=== PATIENT | female | born 1940 | race Caucasian/White ===

== ENCOUNTER 2016-11-24 10:05 | Outpatient (CLI) | payer MEDICARE, OTHER | END 2016-11-24 10:06 | disposition home or self-care (01) | DX: I10 Essential (primary) hypertension (principal); I25.10 Atherosclerotic heart disease of native coronary artery without angina pectoris; E78.2 Mixed hyperlipidemia; E74.39 Other disorders of intestinal carbohydrate absorption; R73.02 Impaired glucose tolerance (oral) ==

== ENCOUNTER 2017-08-25 09:38 | Outpatient (CLI) | payer MEDICARE, OTHER ==
[2017-08-25 12:57] LABS: BASOPHILS % (AUTO) 0.8 %; EOSINOPHILS # (AUTO) 0.2 10^3/uL (0.0-0.7); EOSINOPHILS % (AUTO) 4.5 %; HCT - HEMATOCRIT 35.5 % (37.0-47.0); HGB - HEMOGLOBIN 12.1 g/dL (12.0-16.0); LYMPHOCYTES # (AUTO) 1.9 10^3/uL (1.5-3.5); LYMPHOCYTES % (AUTO) 39.3 %; MEAN CORPUSCULAR HGB CONC 34.1 g/dL (32.0-36.0); MEAN CORPUSCULAR VOLUME 93.9 fL (81.0-99.0); MEAN PLATELET VOLUME 9.4 fL (7.9-10.8); MONOCYTES # (AUTO) 0.5 10^3/uL (0.0-1.0); MONOCYTES % (AUTO) 10.1 %; NEUTROPHILS # (AUTO) 2.2 10^3/uL (1.5-6.6); NEUTROPHILS % (AUTO) 45.3 %; RED BLOOD COUNT 3.78 10^6/uL (4.20-5.40); RED CELL DISTRIBUTION WIDTH 14.8 % (12.0-15.0); UNCORRECTED WHITE BLOOD COUNT 4.9 x10^3/uL; WHITE BLOOD COUNT 4.9 x10^3/uL (4.8-10.8)
[2017-08-25 13:22] LABS: CALCIUM 9.1 mg/dL (8.5-10.3); CREATININE 0.7 mg/dL (0.4-1.0); POTASSIUM 4.1 mmol/L (3.5-5.0)
== END 2017-08-25 09:39 | disposition home or self-care (01) ==
LOC: LAB.WCP 09:38
PROVIDERS: ATTEND Nurse Practitioner
DX: I35.0 Nonrheumatic aortic (valve) stenosis (principal); Z51.81 Encounter for therapeutic drug level monitoring; Z79.899 Other long term (current) drug therapy
CPT/HCPCS: 36415; 80048; 85025

== ENCOUNTER 2017-10-26 08:00 | Outpatient (CLI) | payer MEDICARE, OTHER | END 2017-10-26 08:01 | disposition home or self-care (01) | LOC: LAB.WCP 08:00 | PROVIDERS: ATTEND Family Medicine | DX: N39.0 Urinary tract infection, site not specified (principal) | CPT/HCPCS: 87086 ==

== ENCOUNTER 2017-11-18 13:53 | Outpatient (CLI) | payer MEDICARE, OTHER ==
--- NOTE | 2017-11-19 16:45 | Mammography Report ---
DATE OF SERVICE: 11/18/2017 DIGITAL SCREENING MAMMOGRAM: 11/18/2017 CLINICAL INDICATION: A 77-year-old with family history of breast cancer, history of benign biopsy, for screening. COMPARISON: 05/2016, 03/2014, 11/2012, 06/2011. TECHNIQUE: Routine CC and MLO projections were obtained of the breasts. FINDINGS: The breasts again demonstrate scattered fibroglandular densities bilaterally. Coarse and punctate, typically benign calcifications are present. No suspicious masses, clustered microcalcifications, or regions of architectural distortion are identified. IMPRESSION: BENIGN FINDINGS. RECOMMENDATION: ROUTINE ANNUAL SCREENING UNLESS OTHERWISE CLINICALLY INDICATED. BIRADS CATEGORY 2-BENIGN FINDINGS. STANDARD QUALIFYING STATEMENTS: 1. This examination was reviewed with the aid of Computer-Aided Detection (CAD). 2. A negative or benign imaging report should not delay biopsy if clinically suspicious findings are present. Consider surgical consultation if warranted. More than 5% of cancers are not identified by imaging. 3. Dense breasts may obscure an underlying neoplasm. TD: 11/19/2017 17:45
== END 2017-11-18 13:54 | disposition home or self-care (01) ==
LOC: DI 13:53
PROVIDERS: ATTEND Family Medicine
DX: Z12.31 Encounter for screening mammogram for malignant neoplasm of breast (principal); Z80.3 Family history of malignant neoplasm of breast
CPT/HCPCS: 77067

== ENCOUNTER 2018-05-30 14:20 | Outpatient (CLI) | payer MEDICARE, OTHER ==
--- NOTE | 2018-06-01 09:24 | DEXA Report ---
Procedure Date: 05/30/2018 Accession Number: [id number] / [id number] Procedure: DEX - Dexa Spine and/or Hip CPT Code: FULL RESULT: EXAM: Dexa Spine and/or Hip DATE: 05/30/2018 3:05 PM CLINICAL HISTORY: OSTEOPOROSIS NOS TECHNIQUE: Dual energy x-ray absorptiometry (DXA) was performed on a [employer] System. Regions measured are the AP Spine, femoral neck, and if needed forearm. COMPARISON: None. In accordance with the International Society for Clinical Densitometry (ISCD) guidelines, data from previous exams may be reanalyzed using current recommendations and techniques. This is done to allow a more accurate basis for comparison with the current study. FINDINGS: The data for the lumbar spine is as follows: BMD (g/cm/cm) T-SCORE Z-SCORE REGION L1 L2 0.288 -7.6 -7.0 L3 0.238 -8.0 -7.4 L4 0.218 -8.2 -7.5 TOTAL 0.247 -7.9 -7.3 NOTE: All evaluable vertebrae are used for classification The data for the hip is as follows: BMD (g/cm/cm) T-SCORE Z-SCORE REGION Neck 0.589 -3.2 -1.9 TOTAL 0.597 -3.3 -2.2 NOTE: The femoral neck or total proximal femur, whichever is lowest, is used for classification. DXA RESULTS SUMMARY: Spine SCAN DATE A[age] BMD CHANGE VS CHANGE VS PREVIOUS PREVIOUS % [birth year][age]30/2018 [age] 0.228 -0.774* -76.2* 08/14/2016 76.0 1.002 * Denotes significant change at the 95% confidence level. Denotes dissimilar scan types or analysis methods. DXA RESULTS SUMMARY: Hip SCAN DATE AGE BMD CHANGE VS CHANGE VS PREVIOUS PREVIOUS % [birth year]30/2018 77.8 0.597 0.019 3.3 08/14/2016 76.0 0.578 * Denotes significant change at the 95% confidence level. Denotes dissimilar scan types or analysis methods. IMPRESSION: THE WHO CLASSIFICATION BASED ON THE INTERNATIONAL REFERENCE STANDARD IS OSTEOPOROSIS. THE FRACTURE RISK IS HIGH. Please note that the interval change represents marked progression of osteoporosis. RECOMMENDATION: Patients with diagnosis of osteoporosis or osteopenia should have regular bone mineral density assessment. For those eligible for Medicare, routine testing is allowed once every 2 years. Testing frequency can be increased for patients who have rapidly progressing disease or for those who are receiving medical therapy to restore bone mass. COMMENT: World Health Organization (WHO) definitions for osteoporosis and osteopenia: NORMAL BMD: T-score at -1.0 or higher, fracture risk is low OSTEOPENIA BMD: T-score between -1.0 and -2.5, fracture risk is increased. OSTEOPOROSIS BMD: T-score at -2.5 or lower, fracture risk is high. National Osteoporosis Foundation recommends: 1. Obtain adequate dietary calcium (at least 1200 mg per day) and vitamin D (400-800 international units per day). 2. Participate, as appropriate, in regular weightbearing and muscle-strengthening exercise. 3. Avoid tobacco use and reduce alcohol and caffeine intake. 4. For more detailed information see the website at www.NOF.org.
== END 2018-05-30 14:21 | disposition home or self-care (01) ==
LOC: DI 14:20
PROVIDERS: ATTEND Family Medicine
DX: M81.0 Age-related osteoporosis without current pathological fracture (principal)
CPT/HCPCS: 77080

== ENCOUNTER 2018-07-20 13:52 | Outpatient (CLI) | payer MEDICARE, OTHER ==
[2018-07-20 19:30] LABS: CREATININE 0.5 mg/dL (0.4-1.0)
[2018-07-20 19:36] LABS: THYROID STIMULATING HORMONE 1.42 uIU/mL (0.34-5.60)
== END 2018-07-20 13:53 | disposition home or self-care (01) ==
LOC: LAB.WCP 13:52
PROVIDERS: ATTEND Internal Medicine Endocrinology, Diabetes & Metabolism
DX: M18.0 Bilateral primary osteoarthritis of first carpometacarpal joints (principal); E55.9 Vitamin D deficiency, unspecified; E03.9 Hypothyroidism, unspecified
CPT/HCPCS: 36415; 80048; 82652; 83970; 84443

== ENCOUNTER 2018-08-03 13:26 | Outpatient (CLI) | payer MEDICARE, OTHER | END 2018-08-03 13:27 | disposition home or self-care (01) | LOC: LAB.WCP 13:26 | PROVIDERS: ATTEND Internal Medicine Endocrinology, Diabetes & Metabolism | DX: E55.9 Vitamin D deficiency, unspecified (principal) | CPT/HCPCS: 36415; 82306; 83970 ==

== ENCOUNTER 2018-09-21 08:00 | Outpatient (CLI) | payer MEDICARE, OTHER ==
[2018-09-21 14:30] LABS: EOSINOPHILS # (AUTO) 0.2 10^3/uL (0.0-0.7); LYMPHOCYTES # (AUTO) 2.2 10^3/uL (1.5-3.5); LYMPHOCYTES % (AUTO) 52.2 %; MEAN CORPUSCULAR HEMOGLOBIN 33.7 pg (27.0-31.0); MEAN CORPUSCULAR HGB CONC 34.9 g/dL (32.0-36.0); MEAN CORPUSCULAR VOLUME 96.5 fL (81.0-99.0); MEAN PLATELET VOLUME 9.5 fL (7.9-10.8); MONOCYTES # (AUTO) 0.4 10^3/uL (0.0-1.0); MONOCYTES % (AUTO) 8.5 %; NEUTROPHILS # (AUTO) 1.4 10^3/uL (1.5-6.6); NEUTROPHILS % (AUTO) 33.3 %; PLT - PLATELET COUNT 221 10^3/uL (130-450); RED BLOOD COUNT 3.86 10^6/uL (4.20-5.40); RED CELL DISTRIBUTION WIDTH 13.5 % (12.0-15.0); WHITE BLOOD COUNT 4.2 x10^3/uL (4.8-10.8)
[2018-09-21 14:37] LABS: ALBUMIN 3.9 g/dL (3.2-5.5); ALBUMIN/GLOBULIN RATIO 1.3 (1.0-2.2); ALKALINE PHOSPHATASE 50 IU/L (42-121); ALT ALANINE AMINOTRANSFERASE 19 IU/L (10-60); AST ASPARTATE AMINOTRANSFERASE 31 IU/L (10-42); BILIRUBIN,TOTAL 1.1 mg/dL (0.2-1.0); BUN - BLOOD UREA NITROGEN 19 mg/dL (6-20); CALCIUM 9.2 mg/dL (8.5-10.3); CARBON DIOXIDE - CO2 30 mmol/L (21-32); CHLORIDE 98 mmol/L (101-111); CHOL/HDL RATIO 3.1 (<4.4); CHOLESTEROL 168 mg/dL; CREATININE 0.5 mg/dL (0.4-1.0); GFR - MDRD 119 (>89); GLUCOSE 97 mg/dL (70-100); HDL CHOLESTEROL 55 mg/dL; LDL CHOLESTEROL,CALCULATED 87 mg/dL; LDL/HDL RATIO 1.6 (<4.4); SODIUM 135 mmol/L (135-145); TOTAL PROTEIN 6.8 g/dL (6.7-8.2); VLDL CHOLESTEROL 26 mg/dL
== END 2018-09-21 23:59 ==
LOC: LAB.WCP 08:00
PROVIDERS: ATTEND Physician Assistant Medical
DX: E78.2 Mixed hyperlipidemia (principal); E03.9 Hypothyroidism, unspecified; I10 Essential (primary) hypertension; M81.0 Age-related osteoporosis without current pathological fracture; I25.10 Atherosclerotic heart disease of native coronary artery without angina pectoris
CPT/HCPCS: 36415; 80053; 80061; 83721; 84443; 85025

== ENCOUNTER 2018-12-30 08:00 | Outpatient (CLI) | payer MEDICARE, OTHER | END 2018-12-30 23:59 | disposition home or self-care (01) | LOC: LAB.WCP 08:00 | PROVIDERS: ATTEND Family Medicine | DX: Z51.81 Encounter for therapeutic drug level monitoring (principal); Z95.2 Presence of prosthetic heart valve; Z79.01 Long term (current) use of anticoagulants ==

== ENCOUNTER 2019-01-27 16:21 | Outpatient (CLI) | payer MEDICARE, OTHER ==
--- NOTE | 2019-01-30 16:52 | Mammography Report ---
Reason: ANNUAL SCREENING Procedure Date: 01/27/2019 Accession Number: [id number] / [id number] Procedure: [facility] - Screening Mammo Dig Bilat CPT Code: FULL RESULT: EXAM: Screening Mammo Dig Bilat DATE: 01/27/2019 4:47 PM CLINICAL HISTORY: Routine screening. Personal history of prior right breast surgery. Family history breast cancer in mother in her 70s. TECHNIQUE: (B) - Bilateral Bilateral CC and MLO views were obtained. COMPARISON: 11/18/2017 through 11/09/2012 FINDINGS: Bilateral breasts: No suspicious masses, clustered microcalcifications, or regions of architectural distortion are identified. No significant changes from the comparison mammograms. PARENCHYMAL PATTERN: (A) - The breasts demonstrate scattered fibroglandular densities bilaterally. IMPRESSION: Negative. BI-RADS Category 1. Recommend annual screening mammography. RECOMMENDATION: (ANNUAL) - Recommend routine annual screening mammography. BI-RADS CATEGORY: (1) - Negative STANDARD QUALIFYING STATEMENTS: 1. This examination was not reviewed with the aid of Computer-Aided Detection (CAD). 2. A negative or benign imaging report should not preclude biopsy if clinically suspicious findings are present. 3. Dense breasts may obscure an underlying neoplasm. 4. This examination was reviewed without the aid of 3D breast imaging (tomosynthesis).
== END 2019-01-27 16:22 | disposition home or self-care (01) ==
LOC: DI 16:21
DX: Z12.31 Encounter for screening mammogram for malignant neoplasm of breast (principal); Z80.3 Family history of malignant neoplasm of breast
CPT/HCPCS: 77067

== ENCOUNTER 2019-01-30 08:00 | Outpatient (CLI) | payer MEDICARE, OTHER | END 2019-01-30 23:59 | disposition home or self-care (01) | LOC: LAB.WCP 08:00 | PROVIDERS: ATTEND Family Medicine | DX: Z79.01 Long term (current) use of anticoagulants (principal); Z95.2 Presence of prosthetic heart valve | CPT/HCPCS: 81025 ==

== ENCOUNTER 2019-02-08 08:00 | Outpatient (CLI) | payer MEDICARE, OTHER | END 2019-02-08 23:59 | disposition home or self-care (01) | LOC: LAB.WCP 08:00 | PROVIDERS: ATTEND Physician Assistant | DX: Z51.81 Encounter for therapeutic drug level monitoring (principal); Z79.01 Long term (current) use of anticoagulants ==

== ENCOUNTER 2019-03-08 08:00 | Outpatient (CLI) | payer MEDICARE, OTHER | END 2019-03-08 23:59 | disposition home or self-care (01) | LOC: LAB.WCP 08:00 | PROVIDERS: ATTEND Physician Assistant | DX: Z79.01 Long term (current) use of anticoagulants (principal); Z95.2 Presence of prosthetic heart valve ==

== ENCOUNTER 2019-06-09 08:00 | Outpatient (CLI) | payer MEDICARE, OTHER | END 2019-06-09 23:59 | disposition home or self-care (01) | LOC: LAB.WCP 08:00 | PROVIDERS: ATTEND Family Medicine | DX: Z79.01 Long term (current) use of anticoagulants (principal); Z95.2 Presence of prosthetic heart valve ==

== ENCOUNTER 2019-06-12 08:53 | Outpatient (CLI) | payer MEDICARE, OTHER ==
[2019-06-12 12:42] LABS: ALBUMIN 3.6 g/dL (3.2-5.5); ALBUMIN/GLOBULIN RATIO 1.1 (1.0-2.2); ALKALINE PHOSPHATASE 34 IU/L (42-121); ALT ALANINE AMINOTRANSFERASE 18 IU/L (10-60); AST ASPARTATE AMINOTRANSFERASE 27 IU/L (10-42); BILIRUBIN,TOTAL 0.8 mg/dL (0.2-1.0); BUN - BLOOD UREA NITROGEN 16 mg/dL (6-20); CALCIUM 8.7 mg/dL (8.5-10.3); CARBON DIOXIDE - CO2 26 mmol/L (21-32); CHLORIDE 103 mmol/L (101-111); CHOL/HDL RATIO 2.9 (<4.4); CHOLESTEROL 163 mg/dL; CREATININE 0.6 mg/dL (0.4-1.0); GFR - MDRD 96 (>89); GLUCOSE 94 mg/dL (70-100); HDL CHOLESTEROL 57 mg/dL; LDL CHOLESTEROL,CALCULATED 87 mg/dL; LDL/HDL RATIO 1.5 (<4.4); SODIUM 139 mmol/L (135-145); TOTAL PROTEIN 6.8 g/dL (6.7-8.2); VLDL CHOLESTEROL 19 mg/dL
[2019-06-12 12:46] LABS: BASOPHILS % (AUTO) 0.7 %; EOSINOPHILS # (AUTO) 0.3 10^3/uL (0.0-0.7); EOSINOPHILS % (AUTO) 5.4 %; HGB - HEMOGLOBIN 12.5 g/dL (12.0-16.0); LYMPHOCYTES # (AUTO) 2.7 10^3/uL (1.5-3.5); LYMPHOCYTES % (AUTO) 48.8 %; MEAN CORPUSCULAR HEMOGLOBIN 32.6 pg (27.0-31.0); MEAN CORPUSCULAR HGB CONC 32.6 g/dL (32.0-36.0); MEAN PLATELET VOLUME 11.6 fL (7.9-10.8); MONOCYTES # (AUTO) 0.4 10^3/uL (0.0-1.0); MONOCYTES % (AUTO) 6.3 %; NEUTROPHILS # (AUTO) 2.2 10^3/uL (1.5-6.6); NEUTROPHILS % (AUTO) 38.4 %; PLT - PLATELET COUNT 205 10^3/uL (130-450); RED BLOOD COUNT 3.84 10^6/uL (4.20-5.40); RED CELL DISTRIBUTION WIDTH 13.7 % (12.0-15.0); WHITE BLOOD COUNT 5.6 x10^3/uL (4.8-10.8)
[2019-06-12 16:26] LABS: HB2 TOTAL 11.5 g/dL; HEMOGLOBIN A1C 0.4 g/dL; HEMOGLOBIN A1C % 5.3 % (4.6-6.2)
== END 2019-06-12 23:59 | disposition home or self-care (01) ==
LOC: LAB.WCP 08:53
PROVIDERS: ATTEND Family Medicine
DX: I10 Essential (primary) hypertension (principal); R73.09 Other abnormal glucose; E78.2 Mixed hyperlipidemia; E03.9 Hypothyroidism, unspecified
CPT/HCPCS: 36415; 80053; 80061; 83036; 83721; 84443; 85025

== ENCOUNTER 2019-07-05 08:00 | Outpatient (CLI) | payer MEDICARE, OTHER | END 2019-07-05 23:59 | disposition home or self-care (01) | LOC: LAB.WCP 08:00 | PROVIDERS: ATTEND Family Medicine | DX: Z95.2 Presence of prosthetic heart valve (principal); Z79.01 Long term (current) use of anticoagulants ==

== ENCOUNTER 2019-08-02 08:00 | Outpatient (CLI) | payer MEDICARE, OTHER | END 2019-08-02 23:59 | disposition home or self-care (01) | LOC: LAB.WCP 08:00 | PROVIDERS: ATTEND Family Medicine | DX: Z79.01 Long term (current) use of anticoagulants (principal); Z95.2 Presence of prosthetic heart valve ==

== ENCOUNTER 2019-08-30 08:00 | Outpatient (CLI) | payer MEDICARE, OTHER | END 2019-08-30 23:59 | disposition home or self-care (01) | LOC: LAB.WCP 08:00 | PROVIDERS: ATTEND Family Medicine | DX: Z95.2 Presence of prosthetic heart valve (principal); Z79.01 Long term (current) use of anticoagulants ==

== ENCOUNTER 2019-10-03 08:00 | Outpatient (CLI) | payer MEDICARE, OTHER | END 2019-10-03 23:59 | disposition home or self-care (01) | LOC: LAB.WCP 08:00 | PROVIDERS: ATTEND Family Medicine | DX: Z95.2 Presence of prosthetic heart valve (principal); Z79.01 Long term (current) use of anticoagulants ==

== ENCOUNTER 2019-11-08 08:00 | Outpatient (CLI) | payer MEDICARE, OTHER ==
[2019-11-08 18:13] LABS: BASOPHILS # (AUTO) 0.1 10^3/uL (0.0-0.1); EOSINOPHILS # (AUTO) 0.3 10^3/uL (0.0-0.7); EOSINOPHILS % (AUTO) 6.9 %; HGB - HEMOGLOBIN 13.5 g/dL (12.0-16.0); LYMPHOCYTES % (AUTO) 40.5 %; MEAN CORPUSCULAR HEMOGLOBIN 32.4 pg (27.0-31.0); MEAN CORPUSCULAR HGB CONC 32.8 g/dL (32.0-36.0); MEAN CORPUSCULAR VOLUME 98.6 fL (81.0-99.0); MEAN PLATELET VOLUME 10.8 fL (7.9-10.8); MONOCYTES # (AUTO) 0.6 10^3/uL (0.0-1.0); MONOCYTES % (AUTO) 11.1 %; NEUTROPHILS % (AUTO) 40.3 %; PLT - PLATELET COUNT 253 10^3/uL (130-450); RED BLOOD COUNT 4.17 10^6/uL (4.20-5.40); RED CELL DISTRIBUTION WIDTH 13.6 % (12.0-15.0)
== END 2019-11-08 23:59 | disposition home or self-care (01) ==
LOC: LAB.WCP 08:00
PROVIDERS: ATTEND Orthopaedic Surgery
DX: Z01.812 Encounter for preprocedural laboratory examination (principal)
CPT/HCPCS: 36415; 80051; 85025

== ENCOUNTER 2019-11-22 08:00 | Outpatient (CLI) | payer MEDICARE, OTHER | END 2019-11-22 23:59 | disposition home or self-care (01) | LOC: LAB.WCP 08:00 | PROVIDERS: ATTEND Family Medicine | DX: Z79.01 Long term (current) use of anticoagulants (principal); Z95.2 Presence of prosthetic heart valve ==

== ENCOUNTER 2019-12-01 08:00 | Outpatient (CLI) | payer MEDICARE, OTHER | END 2019-12-01 23:59 | disposition home or self-care (01) | LOC: LAB.WCP 08:00 | PROVIDERS: ATTEND Family Medicine | DX: Z95.2 Presence of prosthetic heart valve (principal); Z79.01 Long term (current) use of anticoagulants ==

== ENCOUNTER 2019-12-06 08:00 | Outpatient (CLI) | payer MEDICARE, OTHER | END 2019-12-06 23:59 | disposition home or self-care (01) | LOC: LAB.WCP 08:00 | PROVIDERS: ATTEND Family Medicine | DX: Z79.01 Long term (current) use of anticoagulants (principal); Z95.2 Presence of prosthetic heart valve ==

== ENCOUNTER 2020-02-14 01:18 | Emergency (ER) | payer MEDICARE, OTHER ==
[2020-02-14 02:20] LABS: BASOPHILS # (AUTO) 0.1 10^3/uL (0.0-0.1); BASOPHILS % (AUTO) 0.8 %; EOSINOPHILS # (AUTO) 0.1 10^3/uL (0.0-0.7); HGB - HEMOGLOBIN 11.4 g/dL (12.0-16.0); LYMPHOCYTES # (AUTO) 0.7 10^3/uL (1.5-3.5); LYMPHOCYTES % (AUTO) 11.2 %; MEAN CORPUSCULAR HEMOGLOBIN 31.8 pg (27.0-31.0); MEAN CORPUSCULAR HGB CONC 33.9 g/dL (32.0-36.0); MEAN CORPUSCULAR VOLUME 93.9 fL (81.0-99.0); MEAN PLATELET VOLUME 10.5 fL (7.9-10.8); MONOCYTES # (AUTO) 0.4 10^3/uL (0.0-1.0); MONOCYTES % (AUTO) 5.6 %; NEUTROPHILS # (AUTO) 5.3 10^3/uL (1.5-6.6); NEUTROPHILS % (AUTO) 79.8 %; PLT - PLATELET COUNT 235 10^3/uL (130-450); RED BLOOD COUNT 3.58 10^6/uL (4.20-5.40); RED CELL DISTRIBUTION WIDTH 15.4 % (12.0-15.0); WHITE BLOOD COUNT 6.6 x10^3/uL (4.8-10.8)
[2020-02-14 02:28] LABS: INR 2.3 (0.8-1.2); PT - PROTHROMBIN TIME 24.5 secs (9.9-12.6)
[2020-02-14 02:31] LABS: ALBUMIN/GLOBULIN RATIO 0.8 (1.0-2.2); BILIRUBIN,TOTAL 0.4 mg/dL (0.2-1.0); CALCIUM 7.9 mg/dL (8.5-10.3); CREATININE 0.6 mg/dL (0.4-1.0); TOTAL PROTEIN 6.9 g/dL (6.7-8.2)
--- NOTE | 2020-02-14 02:56 | XRAY Report ---
Reason: demenished lunch sounds, dry cough, tachypnea, SOA Procedure Date: 02/14/2020 Accession Number: [id number] / [id number] Procedure: XR - Chest 1 View X-Ray CPT Code: 53145 Final Report FULL RESULT: EXAM: CHEST RADIOGRAPHY EXAM DATE: 02/14/2020 02:42 AM. CLINICAL HISTORY: Demenished lunch sounds, dry cough, tachypnea, SOA. COMPARISON: None. TECHNIQUE: 1 view. FINDINGS: Lungs/Pleura: Mild bilateral interstitial opacities. No focal consolidation, effusion, or pneumothorax. Mediastinum: Postoperative changes. No cardiomegaly. Other: None. IMPRESSION: Mild bilateral interstitial prominence. Consider viral or atypical infection in the appropriate clinical scenario. RADIA
--- NOTE | 2020-02-14 03:19 | ED Physician Documentation ---
PD HPI FEVER - Stated complaint Stated Complaint: FEVER/COUGH - Chief complaint Chief Complaint: Fever - History obtained from History obtained from: Patient - History of Present Illness Timing - onset: Yesterday Timing details: Gradual onset Pain level now: 0 Associated symptoms: Sweats Recently seen: Admitted, Surgery - Additional information Additional information: Patient presents for fevers over the past 24 hours. Tmax at home tonight was 102. She has also had sweats. She has noted mild cough episodically for the past few weeks. patient underwent right hip replacement December 13. Approximately one week later, she underwent evacuation of a hematoma of the right thigh and was anemic and required transfusions. Approximately four weeks ago, she was taken back to the operating room for a washout of right hip infection and had a picc line placed LUE through which she continues to get antibiotic (home infusions). Review of Systems Constitutional: reports: Fever, Sweats. denies: Myalgias Cardiac: reports: Reviewed and negative Respiratory: reports: Cough. denies: Dyspnea GI: reports: Reviewed and negative : denies: Dysuria, Frequency Skin: reports: Reviewed and negative Neurologic: reports: Reviewed and negative PD PAST MEDICAL HISTORY - Past Medical History Past Medical History: Yes Cardiovascular: Hypertension, High cholesterol, Valve disorder Endocrine/Autoimmune: HyPOthyroidism GI: GERD - Past Surgical History Past Surgical History: Yes Ortho: Hip replacement Cardiovascular: Valve replacement - Present Medications Home Medications: Ambulatory Orders Medication Instructions Recorded Confirmed Amoxicillin 500 mg PO 02/16/20 Cyclobenzaprine HCl 10 mg PO 02/16/20 Ezetimibe 10 mg PO 02/16/20 Levofloxacin [Levaquin] 750 mg PO 02/16/20 Levothyroxine [Synthroid] 125 mcg PO QDAC 02/16/20 02/16/20 Lisinopril [Prinivil] 5 mg PO 02/16/20 Omeprazole 40 mg PO 02/16/20 Pramipexole Di-HCl [Pramipexole 0.25 mg PO 02/16/20 Dihydrochloride] Rosuvastatin Calcium [Crestor] 40 mg PO 02/16/20 Tolterodine Tartrate [Tolterodine 4 mg PO 02/16/20 Tartrate ER] Trospium Chloride [Trospium 60 mg PO 02/16/20 Chloride ER] Warfarin [Coumadin] 5 mg PO 1400 02/16/20 02/16/20 carvediloL [Carvedilol] 25 mg PO 02/16/20 - Allergies Allergies/Adverse Reactions: Allergies Allergy/AdvReac Type Severity Reaction Status Date / Time hydrocodone AdvReac Unknown Verified 02/16/20 21:19 latex AdvReac Unknown Verified 02/16/20 21:19 oxycodone AdvReac Unknown Verified 02/16/20 21:19 PD ED PE NORMAL - Vitals Vital signs reviewed: Yes - General General: Alert and oriented X 3, No acute distress, Well developed/nourished - HEENT HEENT: Moist mucous membranes - Neck Neck: Supple, no meningeal sign - Cardiac Cardiac: RRR, No murmur - Respiratory Respiratory: No respiratory distress, Clear bilaterally - Abdomen Abdomen: Soft, Non tender - Derm Derm: Normal color, Warm and dry - Extremities Extremities: Other (right hip surgical site is c/d/I with sutures in place. no crepitus, erythema, or discharge) Results - Vitals Vitals: Oxygen O2 Source Room air - Labs Labs: Microbiology 02/14/20 02:00 Blood Culture - Preliminary Blood NO GROWTH AFTER 2 DAYS Laboratory Tests 02/14/20 02/14/20 02/14/20 01:45 01:45 02:00 WBC 6.6 RBC 3.58 L Hgb 11.4 L Hct 33.6 L MCV 93.9 MCH 31.8 H MCHC 33.9 RDW 15.4 H Plt Count 235 MPV 10.5 Neut # (Auto) 5.3 Lymph # (Auto) 0.[address] [facility] # (Auto) 0.4 Eos # (Auto) 0.1 Baso # (Auto) 0.1 Absolute Nucleated RBC 0.00 Nucleated RBC % 0.0 PT INR APTT Sodium Potassium Chloride Carbon Dioxide Anion Gap BUN Creatinine Estimated GFR (MDRD) Glucose Lactic Acid Calcium Total Bilirubin AST ALT Alkaline Phosphatase Total Protein Albumin Globulin Albumin/Globulin Ratio Lipase Coronavirus (PCR) NEGATIVE Influenza A (Rapid) Negative Influenza B (Rapid) Negative 02/14/20 02/14/20 02/14/20 02:00 02:00 02:00 WBC RBC Hgb Hct MCV MCH MCHC RDW Plt Count MPV Neut # (Auto) Lymph # (Auto) [facility] # (Auto) Eos # (Auto) Baso # (Auto) Absolute Nucleated RBC Nucleated RBC % PT 24.5 H INR 2.3 H APTT 31.0 Sodium 131 L Potassium 3.0 L Chloride 97 L Carbon Dioxide 26 Anion Gap 8.0 BUN 12 Creatinine 0.6 Estimated GFR (MDRD) 96 Glucose 141 H Lactic Acid 1.5 Calcium 7.9 L Total Bilirubin 0.4 AST 66 H ALT 46 Alkaline Phosphatase 68 Total Protein 6.9 Albumin 3.0 L Globulin 3.9 Albumin/Globulin Ratio 0.8 L Lipase 31 Coronavirus (PCR) Influenza A (Rapid) Influenza B (Rapid) - Rads (name of study) chest xray Radiology: Prelim report reviewed, See rad report PD MEDICAL DECISION MAKING - ED course Complexity details: reviewed results, re-evaluated patient, considered differential, d/w patient Departure - Departure Disposition: 01 Home, Self Care Clinical Impression: Fever Qualifiers: Fever type: unspecified Qualified Code(s): R50.9 - Fever, unspecified Condition: Good Instructions: ED Fever Unconf Cause, ED Fever Control Follow-Up: Fermin Martell MD [Primary Care Provider] - Discharge Date/Time: 02/14/20 04:53
[2020-02-14 04:53] VITALS: BP 114/66
== END 2020-02-14 04:53 | disposition home or self-care (01) ==
LOC: ED 01:18
DX: R50.9 Fever, unspecified (principal); R61 Generalized hyperhidrosis; R05 Cough; I10 Essential (primary) hypertension; Z96.641 Presence of right artificial hip joint; Z79.01 Long term (current) use of anticoagulants; Z95.2 Presence of prosthetic heart valve
CPT/HCPCS: 36415; 71045; 80053; 83605; 83690; 85025; 85610; 85730; 87040; 87275; 87276; 99284; U0002; 81599

== ENCOUNTER 2020-02-16 20:19 | Outpatient (CLI) | payer MEDICARE, OTHER | END 2020-02-16 20:20 | disposition critical access hospital (66) | LOC: EMS 20:19 | PROVIDERS: ATTEND Surgery | DX: R06.02 Shortness of breath (principal); R53.83 Other fatigue; R00.0 Tachycardia, unspecified | CPT/HCPCS: A0425; A0427 ==

== ENCOUNTER 2020-02-16 21:08 | Emergency (ER) | payer MEDICARE, OTHER ==
[2020-02-16] MEDS ORDERED: SODIUM CHLORIDE 0.9% 250 ML IV STA (21:15)
[2020-02-16] MEDS ORDERED: METOPROLOL 5 MG/5 ML VIAL IVP STA (21:20)
[2020-02-16 21:26] LABS: BASOPHILS % (AUTO) 0.2 %; EOSINOPHILS # (AUTO) 0.2 10^3/uL (0.0-0.7); EOSINOPHILS % (AUTO) 1.3 %; HGB - HEMOGLOBIN 12.3 g/dL (12.0-16.0); LYMPHOCYTES # (AUTO) 0.8 10^3/uL (1.5-3.5); LYMPHOCYTES % (AUTO) 5.7 %; MEAN CORPUSCULAR HEMOGLOBIN 31.6 pg (27.0-31.0); MEAN CORPUSCULAR HGB CONC 34.6 g/dL (32.0-36.0); MEAN CORPUSCULAR VOLUME 91.5 fL (81.0-99.0); MEAN PLATELET VOLUME 10.7 fL (7.9-10.8); MONOCYTES # (AUTO) 0.2 10^3/uL (0.0-1.0); MONOCYTES % (AUTO) 1.6 %; NEUTROPHILS # (AUTO) 11.8 10^3/uL (1.5-6.6); NEUTROPHILS % (AUTO) 90.6 %; PLT - PLATELET COUNT 267 10^3/uL (130-450); RED BLOOD COUNT 3.89 10^6/uL (4.20-5.40); RED CELL DISTRIBUTION WIDTH 15.5 % (12.0-15.0); WHITE BLOOD COUNT 13.1 x10^3/uL (4.8-10.8)
[2020-02-16 21:31] LABS: PT - PROTHROMBIN TIME 61.1 secs (9.9-12.6)
[2020-02-16 21:40] LABS: ALBUMIN 2.8 g/dL (3.2-5.5); ALBUMIN/GLOBULIN RATIO 0.6 (1.0-2.2); BILIRUBIN,TOTAL 0.8 mg/dL (0.2-1.0); CALCIUM 7.9 mg/dL (8.5-10.3); CREATININE 0.7 mg/dL (0.4-1.0); INR 5.9 (0.8-1.2); TOTAL PROTEIN 7.3 g/dL (6.7-8.2)
[2020-02-16] MEDS ORDERED: FUROSEMIDE 40 MG/4 ML VIAL IVP STA (21:48)
[2020-02-16 21:49] LABS: DIFFERENTIAL COMMENT MANUAL=AUTO DIFF; PLATELET ESTIMATE, MANUAL NORMAL (130-450,000) (NORMAL); PLATELET MORPHOLOGY NORMAL APPEARANCE (NORMAL); RBC MORPHOLOGY (MULTIPLE) NORMAL APPEARANCE (NORMAL)
[2020-02-16] MEDS ORDERED: POTASSIUM CHLORIDE 20 MEQ TABLET PO STA (21:56)
[2020-02-16] MEDS ORDERED: POTASSIUM CHLOR 10 MEQ/100 ML 10 MEQ/100 ML BAG IV ONE (21:56)
--- NOTE | 2020-02-16 21:57 | ED Physician Documentation ---
History of Present Illness - Stated complaint Stated Complaint: SOA,AFIB, PNA, CHEST DISCOMFORT - Chief complaint Chief Complaint: Cardiac - Additonal information Additional information: This is an 79-year-old female with a history of atrial flutter/fibrillation on warfarin, hypertension, aortic valve replacement (at [facility]), and R hip surgery on 12/13/[address] [facility], heart failure with last EF several years ago 55% according to patient, who presents with shortness of breath. Patient states that she has been short of breath over the last week, and she presented to the emergency department 2 days ago, and had negative influenza and coronavirus testing, her chest x-ray showed possible early infiltrates, and she reports she was told she may have an early pneumonia. She was started on levofloxacin by her primary care provider, she has been taking this for the last 3 days without improvement. She has had worsening shortness of breath since that time, she states is worse when she lays down, she is also had a nonproductive cough. She denies any leg swelling. She denies chest pain. She denies abdominal pain or vomiting. Her breathing got worse tonight so she called EMS, she was found to be in atrial fibrillation with RVR, she was not given any medications in route. She denies fever. Review of Systems Constitutional: denies: Fever Nose: denies: Rhinorrhea / runny nose Cardiac: reports: Palpitations. denies: Chest pain / pressure Respiratory: reports: Dyspnea, Cough GI: denies: Abdominal Pain, Vomiting : reports: Other (+ for chronic incontinence). denies: Dysuria Musculoskeletal: denies: Neck pain Neurologic: denies: Syncope Immunocompromised: denies: Immunocompromised PD PAST MEDICAL HISTORY - Past Medical History Past Medical History: Yes Cardiovascular: Atrial flutter Endocrine/Autoimmune: HyPOthyroidism - Past Surgical History Past Surgical History: Yes Ortho: Hip replacement Cardiovascular: Valve replacement - Present Medications Home Medications: Ambulatory Orders Medication Instructions Recorded Confirmed Amoxicillin 500 mg PO 02/16/20 Cyclobenzaprine HCl 10 mg PO 02/16/20 Ezetimibe 10 mg PO 02/16/20 Levofloxacin [Levaquin] 750 mg PO 02/16/20 Levothyroxine [Synthroid] 125 mcg PO QDAC 02/16/20 02/16/20 Lisinopril [Prinivil] 5 mg PO 02/16/20 Omeprazole 40 mg PO 02/16/20 Pramipexole Di-HCl [Pramipexole 0.25 mg PO 02/16/20 Dihydrochloride] Rosuvastatin Calcium [Crestor] 40 mg PO 02/16/20 Tolterodine Tartrate [Tolterodine 4 mg PO 02/16/20 Tartrate ER] Trospium Chloride [Trospium 60 mg PO 02/16/20 Chloride ER] Warfarin [Coumadin] 5 mg PO 1400 02/16/20 02/16/20 carvediloL [Carvedilol] 25 mg PO 02/16/20 - Allergies Allergies/Adverse Reactions: Allergies Allergy/AdvReac Type Severity Reaction Status Date / Time hydrocodone AdvReac Unknown Verified 02/16/20 21:19 latex AdvReac Unknown Verified 02/16/20 21:19 oxycodone AdvReac Unknown Verified 02/16/20 21:19 - Social History Does the pt smoke?: No Smoking Status: Never smoker Does the pt drink ETOH?: No Does the pt have substance abuse?: No - Immunizations Immunizations are current?: Yes - POLST Patient has POLST: No PD ED PE NORMAL - Vitals Vital signs reviewed: Yes - General General: Alert and oriented X 3, Other (Respiratory distress) - HEENT HEENT: PERRL - Neck Neck: Supple, no meningeal sign - Cardiac Cardiac: Other (Tachycardic, irregularly irregular rhythm) - Respiratory Respiratory: Other (Slight expiratory wheezes bilaterally, bibasilar crackles.) - Abdomen Abdomen: Soft, Non tender, Non distended - Derm Derm: Warm and dry - Extremities Extremities: No deformity, Other (Well approximated incision over the right hip, with sutures in place, incision appears clean dry and intact without erythema or fluctuance, is not tender to palpation.) - Neuro Neuro: Alert and oriented X 3 - Psych Psych: Normal mood, Normal affect Results - Vitals Vitals: Vital Signs - 24 hr 02/16/20 02/16/20 02/16/20 21:19 21:25 21:30 Temperature 36.5 C Heart Rate 166 H 170 H 152 H Respiratory 20 22 40 H Rate Blood Pressure 97/65 105/82 H 118/80 O2 Saturation 94 99 95 02/16/20 02/16/20 02/16/20 21:37 22:20 22:30 Temperature Heart Rate 170 H 151 H 159 H Respiratory 28 H 40 H 38 H Rate Blood Pressure 107/94 H 119/74 101/81 H O2 Saturation 95 96 96 02/16/20 02/17/20 02/17/20 23:00 00:00 00:59 Temperature Heart Rate 160 H 170 H 157 H Respiratory 26 H 30 H 24 Rate Blood Pressure 101/75 102/68 107/82 H O2 Saturation 97 97 95 02/17/20 02/17/20 02/17/20 01:04 01:32 02:04 Temperature Heart Rate 143 H 156 H 156 H Respiratory 22 24 26 H Rate Blood Pressure 95/62 90/60 84/61 L O2 Saturation 95 94 95 02/17/20 02/17/20 02/17/20 02:12 02:20 02:23 Temperature Heart Rate 158 H 155 H 114 H Respiratory 30 H 30 H 28 H Rate Blood Pressure 91/70 79/57 L 113/74 O2 Saturation 95 95 90 L 02/17/20 02/17/20 02/17/20 02:28 02:40 03:01 Temperature Heart Rate 117 H 115 H 128 H Respiratory 30 H 28 H 28 H Rate Blood Pressure 110/95 H 115/65 108/81 H O2 Saturation 94 95 98 02/17/20 03:15 Temperature Heart Rate 104 H Respiratory 24 Rate Blood Pressure 113/72 O2 Saturation 98 Oxygen O2 Source Non-rebreather mask - EKG (time done) 21:12 Other comments: Other comments (Rate 176, rhythm atrial fibrillation with RVR, with apparent left bundle branch block, no STEMI by sgarbossa criteria) 2:34 Other comments: Other comments (Rate 115, rhythm sinus tachycardia with left bundle branch block, no STEMI by sgarbossa criteria) 1:42 Other comments: Other comments (Time 1: 42, rate 163, rhythm wide-complex tachycardia, favored to be atrial fibrillation with LBBB due to irregularity seen on monitor,) - Labs Labs: Laboratory Tests 02/16/20 02/16/20 02/16/20 21:15 21:15 21:15 WBC 13.1 H RBC 3.89 L Hgb 12.3 Hct 35.6 L MCV 91.5 MCH 31.6 H MCHC 34.6 RDW 15.5 H Plt Count 267 MPV 10.7 Neut # (Auto) 11.8 H Lymph # (Auto) 0.8 L [place] # (Auto) 0.2 Eos # (Auto) 0.2 Baso # (Auto) 0.0 Absolute Nucleated RBC 0.00 Band Neuts % (Manual) Not Reportable Abnorm Lymph % (Manual) Not Reportable Nucleated RBC % 0.0 Neutrophils # (Manual) Not Reportable Lymphocytes # (Manual) Not Reportable Monocytes # (Manual) Not Reportable Eosinophils # (Manual) Not Reportable Basophils # (Manual) Not Reportable Differential Comment MANUAL=AUTO DIFF Platelet Estimate NORMAL (130-450,000) Platelet Morphology NORMAL APPEARANCE RBC Morph Micro Appear NORMAL APPEARANCE PT 61.1 H INR 5.9 H* Sodium 124 L Potassium 3.0 L Chloride 88 L Carbon Dioxide 25 Anion Gap 11.0 BUN 19 Creatinine 0.7 Estimated GFR (MDRD) 81 L Glucose 98 Calcium 7.9 L Total Bilirubin 0.8 AST 54 H ALT 49 Alkaline Phosphatase 90 Troponin I High Sens B-Natriuretic Peptide Total Protein 7.3 Albumin 2.8 L Globulin 4.5 H Albumin/Globulin Ratio 0.6 L Lipase 145 H TSH Urine Color Urine Clarity Urine pH Ur Specific [place] Urine Protein Urine Glucose (UA) Urine Ketones Urine Occult Blood Urine Nitrite Urine Bilirubin Urine Urobilinogen Ur Leukocyte Esterase Urine RBC Urine WBC Ur Squamous Epith Cells Urine Bacteria Urine Casts Urine Culture Comments 02/16/20 02/16/20 02/16/20 21:15 21:15 21:15 WBC RBC Hgb Hct MCV MCH MCHC RDW Plt Count MPV Neut # (Auto) Lymph # (Auto) [place] # (Auto) Eos # (Auto) Baso # (Auto) Absolute Nucleated RBC Band Neuts % (Manual) Abnorm Lymph % (Manual) Nucleated RBC % Neutrophils # (Manual) Lymphocytes # (Manual) Monocytes # (Manual) Eosinophils # (Manual) Basophils # (Manual) Differential Comment Platelet Estimate Platelet Morphology RBC Morph Micro Appear PT INR Sodium Potassium Chloride Carbon Dioxide Anion Gap BUN Creatinine Estimated GFR (MDRD) Glucose Calcium Total Bilirubin AST ALT Alkaline Phosphatase Troponin I High Sens 208.0 H* B-Natriuretic Peptide 1018 H Total Protein Albumin Globulin Albumin/Globulin Ratio Lipase TSH 4.10 Urine Color Urine Clarity Urine pH Ur Specific [place] Urine Protein Urine Glucose (UA) Urine Ketones Urine Occult Blood Urine Nitrite Urine Bilirubin Urine Urobilinogen Ur Leukocyte Esterase Urine RBC Urine WBC Ur Squamous Epith Cells Urine Bacteria Urine Casts Urine Culture Comments 02/17/20 01:30 WBC RBC Hgb Hct MCV MCH MCHC RDW Plt Count MPV Neut # (Auto) Lymph # (Auto) [place] # (Auto) Eos # (Auto) Baso # (Auto) Absolute Nucleated RBC Band Neuts % (Manual) Abnorm Lymph % (Manual) Nucleated RBC % Neutrophils # (Manual) Lymphocytes # (Manual) Monocytes # (Manual) Eosinophils # (Manual) Basophils # (Manual) Differential Comment Platelet Estimate Platelet Morphology RBC Morph Micro Appear PT INR Sodium Potassium Chloride Carbon Dioxide Anion Gap BUN Creatinine Estimated GFR (MDRD) Glucose Calcium Total Bilirubin AST ALT Alkaline Phosphatase Troponin I High Sens B-Natriuretic Peptide Total Protein Albumin Globulin Albumin/Globulin Ratio Lipase TSH Urine Color YELLOW Urine Clarity CLEAR Urine pH 6.0 Ur Specific [place] 1.015 Urine Protein NEGATIVE Urine Glucose (UA) NEGATIVE Urine Ketones NEGATIVE Urine Occult Blood TRACE-LYSE Urine Nitrite NEGATIVE Urine Bilirubin NEGATIVE Urine Urobilinogen 0.2 (NORMAL) Ur Leukocyte Esterase NEGATIVE Urine RBC 0-5 Urine WBC 0-3 Ur Squamous Epith Cells NONE SEEN Urine Bacteria Rare Urine Casts 3-5 Hyaline Casts Urine Culture Comments NOT INDICATED Procedures - Procedural sedation Sedation prep: Informed consent, Time out completed, PE performed, AHA 3 - severe disease, RT present Sedation medications: ketamine Patient status during sedation: Unresponsive Sedation recovery: Recovered uneventfully Time in sedation (Minutes): 12 - Cardioversion Attempt 1 Time of attempt: 02:20 Indication: Tachyarrhythmia, Hypotension Risks, benefits, alternatives explained to: Pt Prep: IV, security monitor, Pulse ox, Airway equip Meds: Ketamine CS via: Pads Sync: Biphasic, 150j Post cardioversion rhythm: NSR Performed by: ED MD MEDICAL DECISION MAKING - ED course Complexity details: considered differential (Dysrhythmia, ACS, pneumothorax, pneumonia, coronavirus, heart failure, pulmonary embolism) ED course: On arrival patient is tachycardic, uncomfortable appearing, tachypneic, and short of breath despite being on nasal cannula. EKG shows atrial fibrillation with RVR. She was given 5 mg of metoprolol, and a 250 cc bolus as her blood pressure was low normal. This briefly improved her heart rate, but she continued to feel short of breath, and chest x-ray showed pulmonary edema consistent with heart failure. IV fluids were stopped, and patient was given Lasix instead. Labs show mild leukocytosis which is nonspecific, her INR is supratherapeutic at 5.9, making pulmonary embolism unlikely, and her labs are consistent with volume overload with hyponatremia hypokalemia, hypochloremia. She has mild AST elevation which may be due to hepatic congestion, she has a elevated troponin at 208, Which is indeterminate given her heart failure and RVR, and will be trended. ACS is less likely, given that she has no chest pain. BNP is elevated, UA is negative. She had a negative coronavirus test last 2 days and her symptoms are consistent with heart failure, she is afebrile, and I highly doubt coronavirus at this time, given her respiratory distress she was put on BiPAP and then transition to high flow nasal cannula due to its decreased risk of aerosolization if patients are COVID-19 positive. Her blood pressures down trended to the 90s systolics, and her heart rate remained highly elevated in A. fib with RVR. Given her heart failure beta- blockers and calcium channel blockers are contraindicated, I spoke with Dr. Blackwell of cardiology at [facility], who agreed the plan for amiodarone. Patient was given a loading bolus and was started on a 1/min drip of amiodarone, she had mild improvement of her heart rate from 160 to the 140s to 150s, however her blood pressure was stable to downtrending. She continued to downtrend her systolics to the 80s and then the 70s, at this point repeat EKG showed continued atrial fibrillation with RVR, She appears to becoming more unstable so after consenting the patient we have performed a procedural sedation with ketamine and cardioverted her with 150 J successfully. She afterwards had immediate improvement of her blood pressure and her heart rate improved to the 110s. She recovered from the ketamine uneventfully. She remained on high flow nasal cannula, but we were unable to transfer her on high flow nasal cannula, so she was transitioned to a nonrebreather and did well with this. She was hemodynamically stable at the time of transfer, at the time of transfer she was feeling much improved, and her work of breathing was improved, and she remains in sinus rhythm. She was transferred to [facility] for further treatment and evaluation. Departure - Departure Disposition: 66 [facility] DC/Xfer Clinical Impression: Atrial fibrillation with RVR, Elevated troponin Heart failure Qualifiers: Heart failure type: unspecified Heart failure chronicity: acute on chronic Qualified Code(s): I50.9 - Heart failure, unspecified Respiratory failure Qualifiers: Chronicity: acute Respiratory failure complication: hypoxia Qualified Code(s): J96.01 - Acute respiratory failure with hypoxia Condition: Stable Discharge Date/Time: 02/17/20 03:30
--- NOTE | 2020-02-16 22:02 | XRAY Report ---
Reason: Shortness of breath Procedure Date: 02/16/2020 Accession Number: [id number] / [id number] Procedure: XR - Chest 1 View X-Ray CPT Code: 29056 Final Report FULL RESULT: EXAM: CHEST RADIOGRAPHY EXAM DATE: 02/16/2020 09:27 PM. CLINICAL HISTORY: Shortness of breath. COMPARISON: CHEST 1 VIEW 02/14/2020 2:20 AM. TECHNIQUE: 1 view. FINDINGS: Lungs/Pleura: Worsening interstitial opacities compared to the prior exam, with some blunting of the costophrenic angles likely related at least small pleural effusions. No pneumothoraces. Mediastinum: No change compared to 02/14/2020. Postsurgical changes. Left arm PICC/midline, with tip in the axillary vein. Other: None. IMPRESSION: Worsening interstitial opacities and probable effusions suggest some developing pulmonary edema. RADIA
[2020-02-16] MEDS ORDERED: MIDAZOLAM 2 MG/2 ML VIAL IVP STA (22:06)
[2020-02-17] MEDS ORDERED: AMIODARONE 150 MG/100 ML 100 ML IV ONE (00:32)
[2020-02-17] MEDS ORDERED: AMIODARONE 360 MG/200 ML 200 ML IV ONE (00:32)
[2020-02-17] MEDS ORDERED: cefTRIAXone 1 GM VIAL IVP STA (00:33)
[2020-02-17 01:36] LABS: BILIRUBIN,URINE NEGATIVE (NEGATIVE); CLARITY,URINE CLEAR (CLEAR); GLUCOSE, URINE (UA) NEGATIVE (NEGATIVE); KETONES,URINE (UA) NEGATIVE (NEGATIVE); LEUKOCYTE ESTERASE, URINE NEGATIVE (NEGATIVE); NITRITE,URINE NEGATIVE (NEGATIVE); OCCULT BLOOD,URINE TRACE-LYSE (NEGATIVE); PROTEIN,URINE NEGATIVE (NEGATIVE); UROBILINOGEN,URINE 0.2 (NORMAL) E.U./dL (NORMAL)
[2020-02-17 01:45] LABS: RBC,URINE 0-5 /HPF (0-5); SQUAMOUS EPITHELIAL CELL,UR NONE SEEN (<= Few)
[2020-02-17 01:46] LABS: BACTERIA,URINE Rare /HPF (None Seen); CASTS, URINE 3-5 Hyaline Casts /LPF
[2020-02-17] MEDS ORDERED: KETAMINE 500 MG/10 ML VIAL IVP STA (01:52)
[2020-02-17 03:33] VITALS: BP 113/72
== END 2020-02-17 03:30 | disposition short-term general hospital (02) ==
LOC: EDUNIT# → ED 21:08
DX: I48.91 Unspecified atrial fibrillation (principal); I50.9 Heart failure, unspecified; J96.01 Acute respiratory failure with hypoxia; R79.89 Other specified abnormal findings of blood chemistry; Z79.01 Long term (current) use of anticoagulants
CPT/HCPCS: 36415; 71045; 80053; 81001; 83690; 83880; 84443; 84484; 85025; 85610; 92960; 93005; 96361; 96365; 96366; 96367; 96375; 99152; 99284; 99285; J0282; 87086

== ENCOUNTER 2020-03-15 09:50 | Outpatient (CLI) | payer MEDICARE, OTHER ==
[2020-03-15 10:34] LABS: BASOPHILS % (AUTO) 0.9 %; EOSINOPHILS # (AUTO) 0.2 10^3/uL (0.0-0.7); EOSINOPHILS % (AUTO) 3.7 %; HGB - HEMOGLOBIN 10.3 g/dL (12.0-16.0); LYMPHOCYTES # (AUTO) 1.1 10^3/uL (1.5-3.5); LYMPHOCYTES % (AUTO) 23.1 %; MEAN CORPUSCULAR HEMOGLOBIN 31.7 pg (27.0-31.0); MEAN CORPUSCULAR HGB CONC 33.3 g/dL (32.0-36.0); MEAN CORPUSCULAR VOLUME 95.1 fL (81.0-99.0); MEAN PLATELET VOLUME 10.2 fL (7.9-10.8); MONOCYTES # (AUTO) 0.4 10^3/uL (0.0-1.0); MONOCYTES % (AUTO) 8.5 %; NEUTROPHILS # (AUTO) 2.9 10^3/uL (1.5-6.6); NEUTROPHILS % (AUTO) 63.4 %; PLT - PLATELET COUNT 286 10^3/uL (130-450); RED BLOOD COUNT 3.25 10^6/uL (4.20-5.40); RED CELL DISTRIBUTION WIDTH 17.4 % (12.0-15.0); WHITE BLOOD COUNT 4.6 x10^3/uL (4.8-10.8)
[2020-03-15 10:48] LABS: ALBUMIN 2.7 g/dL (3.2-5.5); ALBUMIN/GLOBULIN RATIO 0.8 (1.0-2.2); BILIRUBIN,TOTAL 0.9 mg/dL (0.2-1.0); CALCIUM 8.6 mg/dL (8.5-10.3); CREATININE 0.7 mg/dL (0.4-1.0); TOTAL PROTEIN 6.1 g/dL (6.7-8.2)
[2020-03-15 11:58] LABS: FREE T4 (FREE THYROXINE) 1.1 ng/dL (0.58-1.64)
== END 2020-03-15 23:59 | disposition home or self-care (01) ==
LOC: LAB.R 09:50
PROVIDERS: ATTEND Internal Medicine Cardiovascular Disease
DX: I48.19 Other persistent atrial fibrillation (principal)
CPT/HCPCS: 80053; 84439; 84443; 85025

== ENCOUNTER 2020-03-18 11:21 | Emergency (ER) | payer MEDICARE, OTHER ==
[2020-03-18] MEDS ORDERED: CHERRY SYRUP 10 ML UDC PO ONE (13:02)
[2020-03-18] MEDS ORDERED: PHYTONADIONE 10 MG/ML AMP PO ONE (13:02)
--- NOTE | 2020-03-18 13:04 | ED Physician Documentation ---
History of Present Illness - Stated complaint Stated Complaint: ABNORMAL LABS/SENT BY - Chief complaint Chief Complaint: General - History obtained from History obtained from: Patient (This is a davon 79-year-old woman who is on warfarin. She is had a tough few months after hip replacements, multiple complications, pneumonia, has been on and off of antibiotics. She had her INR checked a few days ago and it was high, reportedly this was not passed along to her, now it is 8. There is no evidence of active bleeding. She denies headache, dark or tarry stools, or other acute complaints. She admits she might have taken extra dose of warfarin but is not sure.) Review of Systems Constitutional: reports: Reviewed and negative Cardiac: reports: Reviewed and negative Respiratory: reports: Reviewed and negative PD PAST MEDICAL HISTORY - Past Medical History Cardiovascular: Atrial flutter Endocrine/Autoimmune: HyPOthyroidism - Past Surgical History Past Surgical History: Yes Ortho: Hip replacement Cardiovascular: Valve replacement - Present Medications Home Medications: Ambulatory Orders Medication Instructions Recorded Confirmed Amoxicillin 500 mg PO 02/16/20 Cyclobenzaprine HCl 10 mg PO 02/16/20 Ezetimibe 10 mg PO 02/16/20 Levofloxacin [Levaquin] 750 mg PO 02/16/20 Levothyroxine [Synthroid] 125 mcg PO QDAC 02/16/20 02/16/20 Lisinopril [Prinivil] 5 mg PO 02/16/20 Omeprazole 40 mg PO 02/16/20 Pramipexole Di-HCl [Pramipexole 0.25 mg PO 02/16/20 Dihydrochloride] Rosuvastatin Calcium [Crestor] 40 mg PO 02/16/20 Tolterodine Tartrate [Tolterodine 4 mg PO 02/16/20 Tartrate ER] Trospium Chloride [Trospium 60 mg PO 02/16/20 Chloride ER] Warfarin [Coumadin] 5 mg PO 1400 02/16/20 02/16/20 carvediloL [Carvedilol] 25 mg PO 02/16/20 - Allergies Allergies/Adverse Reactions: Allergies Allergy/AdvReac Type Severity Reaction Status Date / Time hydrocodone AdvReac Unknown Verified 03/18/20 11:28 latex AdvReac Unknown Verified 03/18/20 11:28 oxycodone AdvReac Unknown Verified 03/18/20 11:28 - Social History Does the pt smoke?: No Smoking Status: Never smoker Does the pt drink ETOH?: No Does the pt have substance abuse?: No - Immunizations Immunizations are current?: Yes - POLST Patient has POLST: No PD ED PE NORMAL - Vitals Vital signs reviewed: Yes - General General: Alert and oriented X 3, No acute distress - Abdomen Abdomen: Non tender - Derm Derm: Normal color, Warm and dry - Neuro Neuro: Alert and oriented X 3, Normal speech Results - Vitals Vitals: Vital Signs - 24 hr 03/18/20 11:29 Temperature 36.8 C Heart Rate 70 Respiratory 20 Rate Blood Pressure 91/68 O2 Saturation 95 Oxygen O2 Source Room air - Labs Labs: Laboratory Tests 03/18/20 11:50 Whole Blood INR 8.0 H* PD MEDICAL DECISION MAKING - ED course ED course: 79-year-old woman with asymptomatic supratherapeutic INR without evidence of active bleeding. She is administered oral vitamin K 2.5 mg. She has home health check her INR 3 times a week and is advised not to restart her anticoagulant until it her INR is back down in range. Departure - Departure Disposition: 01 Home, Self Care Clinical Impression: Supratherapeutic INR Condition: Good Record reviewed to determine appropriate education?: Yes Instructions: International Normalized Ratio Comments: Hold your anticoagulants for now, you received 2.5 mg of vitamin K here today this should help bring your INR back down into range. Have your INR rechecked as per your normal routine, do not restart your anticoagulant until it is back into the range that you are accustomed to. Return for new or worsening symptoms. Return for any head injury or dark or tarry stools.
[2020-03-18 13:16] VITALS: BP 102/70
== END 2020-03-18 13:26 | disposition home or self-care (01) ==
LOC: ED 11:21
DX: R79.1 Abnormal coagulation profile (principal); Z79.01 Long term (current) use of anticoagulants; Z95.2 Presence of prosthetic heart valve
CPT/HCPCS: 85610; 99283; A9270

== ENCOUNTER 2020-03-27 10:05 | Emergency (ER) | payer MEDICARE, OTHER ==
--- NOTE | 2020-03-27 11:09 | ED Physician Documentation ---
History of Present Illness - Stated complaint Stated Complaint: BLOOD ISSUES - Chief complaint Chief Complaint: General - History obtained from History obtained from: Patient - History of Present Illness Timing: Today - Additonal information Additional information: 79-year-old female who is on Coumadin for atrial fibrillation and mechanical valve has run an elevated INR again today. She was seen on Wednesday with an INR of 3.5 she held her dose for Wednesday night and Wednesday night and this morning her INR is 7.3. She is sent to the emergency department for a dose of vitamin K. The patient is uncertain why her INR is elevated she states that she is otherwise been feeling well feeling better than she usually has except that her INR has been elevated. She has had a recent visit to the emergency department for an INR elevated to 8. She was administered 2 half milligrams of oral vitamin K and restarted on her warfarin at 2.5 mg daily where she had previously been on 2.5 mg daily with 5 twice per week. She denies any bleeding. Review of Systems Constitutional: denies: Fever, Chills, Myalgias Eyes: denies: Decreased vision Ears: denies: Ear pain Nose: denies: Rhinorrhea / runny nose, Congestion Throat: denies: Sore throat Cardiac: denies: Chest pain / pressure, Palpitations Respiratory: denies: Dyspnea, Cough GI: denies: Nausea, Vomiting, Constipation, Diarrhea : denies: Dysuria, Frequency PD PAST MEDICAL HISTORY - Past Medical History Cardiovascular: Atrial flutter Endocrine/Autoimmune: HyPOthyroidism - Past Surgical History Past Surgical History: Yes Ortho: Hip replacement Cardiovascular: Valve replacement - Present Medications Home Medications: Ambulatory Orders Medication Instructions Recorded Confirmed Amoxicillin 500 mg PO 02/16/20 Cyclobenzaprine HCl 10 mg PO 02/16/20 Ezetimibe 10 mg PO 02/16/20 Levofloxacin [Levaquin] 750 mg PO 02/16/20 Levothyroxine [Synthroid] 125 mcg PO QDAC 02/16/20 02/16/20 Lisinopril [Prinivil] 5 mg PO 02/16/20 Omeprazole 40 mg PO 02/16/20 Pramipexole Di-HCl [Pramipexole 0.25 mg PO 02/16/20 Dihydrochloride] Rosuvastatin Calcium [Crestor] 40 mg PO 04/17/20 Tolterodine Tartrate [Tolterodine 4 mg PO 02/16/20 Tartrate ER] Trospium Chloride [Trospium 60 mg PO 02/16/20 Chloride ER] Warfarin [Coumadin] 5 mg PO 1400 02/16/20 02/16/20 carvediloL [Carvedilol] 25 mg PO 02/16/20 - Allergies Allergies/Adverse Reactions: Allergies Allergy/AdvReac Type Severity Reaction Status Date / Time hydrocodone AdvReac Unknown Verified 03/27/20 10:14 latex AdvReac Unknown Verified 03/27/20 10:14 oxycodone AdvReac Unknown Verified 03/27/20 10:14 - Social History Does the pt smoke?: No Smoking Status: Never smoker Does the pt drink ETOH?: No Does the pt have substance abuse?: No - Immunizations Immunizations are current?: Yes - POLST Patient has POLST: No PD ED PE NORMAL - Vitals Vital signs reviewed: Yes (Hypertensive mild) - General General: Alert and oriented X 3, No acute distress, Well developed/nourished - HEENT HEENT: Atraumatic, PERRL, EOMI - Neck Neck: Supple, no meningeal sign - Respiratory Respiratory: No respiratory distress - Derm Derm: Normal color, Warm and dry, No rash - Extremities Extremities: No deformity, Other (Bilateral calf edema nontender) - Neuro Neuro: Alert and oriented X 3, hl7 developer 2-12 intact, No motor deficit, No sensory deficit, Normal speech Eye Opening: Spontaneous Motor: Obeys Commands Verbal: Oriented GCS Score: 15 - Psych Psych: Normal mood, Normal affect Results - Vitals Vitals: Vital Signs - 24 hr 03/27/20 10:14 Temperature 36.7 C Heart Rate 86 Respiratory 17 Rate Blood Pressure 142/93 H O2 Saturation 98 Oxygen O2 Source Room air - Labs Labs: Laboratory Tests 03/27/20 11:12 Whole Blood INR 5.2 H* PD MEDICAL DECISION MAKING - ED course Complexity details: reviewed old records, reviewed results, re-evaluated patient, considered differential, d/w patient ED course: 79-year-old female on Coumadin for a mechanical valve and atrial fibrillation has an elevated INR and is not bleeding. Her reported value was 7.3 today and we repeated that here today it is 5.2. I have offered the patient conservative therapy and she is elected a low-dose Coumadin. We will provide 2 mg of asked her to repeat her INR in follow-up with her primary for restarting her dosing. Departure - Departure Disposition: 01 Home, Self Care Clinical Impression: Supratherapeutic INR Condition: Stable Instructions: Prothrombin Time Follow-Up: Fermin Martell MD [Primary Care Provider] - Comments: Today your repeat INR was 5.2. You have been given a dose of 2 mg of vitamin K. Recheck your INR tomorrow and daily until you are in the range of normal anticoagulation. Talk to her primary care doctor about restarting your Coumadin.
[2020-03-27] MEDS ORDERED: PHYTONADIONE 10 MG/ML AMP PO ONE (11:32)
[2020-03-27] MEDS ORDERED: CHERRY SYRUP 10 ML UDC PO ONE (11:32)
[2020-03-27 11:46] VITALS: BP 129/78
== END 2020-03-27 11:49 | disposition home or self-care (01) ==
LOC: ED 10:05
DX: R79.1 Abnormal coagulation profile (principal); Z79.01 Long term (current) use of anticoagulants; I48.91 Unspecified atrial fibrillation; Z95.2 Presence of prosthetic heart valve
CPT/HCPCS: 85610; 99283; 99284; A9270

== ENCOUNTER 2020-06-04 08:00 | Outpatient (CLI) | payer MEDICARE, OTHER | END 2020-06-04 23:59 | disposition home or self-care (01) | LOC: LAB.WCP 08:00 | PROVIDERS: ATTEND Family Medicine | DX: I48.91 Unspecified atrial fibrillation (principal); Z79.01 Long term (current) use of anticoagulants ==

== ENCOUNTER 2020-07-01 08:00 | Outpatient (CLI) | payer MEDICARE, OTHER ==
[2020-07-01 12:08] LABS: BASOPHILS # (AUTO) 0.1 10^3/uL (0.0-0.1); BASOPHILS % (AUTO) 1.6 %; EOSINOPHILS # (AUTO) 0.2 10^3/uL (0.0-0.7); EOSINOPHILS % (AUTO) 4.9 %; HGB - HEMOGLOBIN 13.6 g/dL (12.0-16.0); LYMPHOCYTES # (AUTO) 1.3 10^3/uL (1.5-3.5); LYMPHOCYTES % (AUTO) 31.5 %; MEAN CORPUSCULAR HGB CONC 32.9 g/dL (32.0-36.0); MEAN CORPUSCULAR VOLUME 97.2 fL (81.0-99.0); MONOCYTES # (AUTO) 0.4 10^3/uL (0.0-1.0); MONOCYTES % (AUTO) 8.5 %; NEUTROPHILS # (AUTO) 2.3 10^3/uL (1.5-6.6); PLT - PLATELET COUNT 274 10^3/uL (130-450); RED BLOOD COUNT 4.25 10^6/uL (4.20-5.40); RED CELL DISTRIBUTION WIDTH 13.9 % (12.0-15.0); WHITE BLOOD COUNT 4.3 x10^3/uL (4.8-10.8)
[2020-07-01 12:33] LABS: ALBUMIN 3.9 g/dL (3.2-5.5); ALBUMIN/GLOBULIN RATIO 1.1 (1.0-2.2); ALKALINE PHOSPHATASE 38 IU/L (42-121); ALT ALANINE AMINOTRANSFERASE 23 IU/L (10-60); AST ASPARTATE AMINOTRANSFERASE 36 IU/L (10-42); BILIRUBIN,TOTAL 0.6 mg/dL (0.2-1.0); BUN - BLOOD UREA NITROGEN 21 mg/dL (6-20); CALCIUM 9.1 mg/dL (8.5-10.3); CARBON DIOXIDE - CO2 27 mmol/L (21-32); CHLORIDE 97 mmol/L (101-111); CHOLESTEROL 195 mg/dL; CREATININE 0.8 mg/dL (0.4-1.0); GLUCOSE 103 mg/dL (70-100); HDL CHOLESTEROL 64 mg/dL; LDL CHOLESTEROL,CALCULATED 111 mg/dL; LDL/HDL RATIO 1.7 (<4.4); SODIUM 133 mmol/L (135-145); TOTAL PROTEIN 7.4 g/dL (6.7-8.2); VLDL CHOLESTEROL 20 mg/dL
== END 2020-07-01 23:59 | disposition home or self-care (01) ==
LOC: LAB.WCP 08:00
PROVIDERS: ATTEND Family Medicine
DX: I48.91 Unspecified atrial fibrillation (principal); I25.10 Atherosclerotic heart disease of native coronary artery without angina pectoris; I10 Essential (primary) hypertension; E78.2 Mixed hyperlipidemia; E74.39 Other disorders of intestinal carbohydrate absorption
CPT/HCPCS: 36415; 80053; 80061; 83721; 84443; 85025

== ENCOUNTER 2020-07-29 08:00 | Outpatient (CLI) | payer MEDICARE, OTHER | END 2020-07-29 23:59 | disposition home or self-care (01) | LOC: LAB.WCP 08:00 | PROVIDERS: ATTEND Physician Assistant Medical | DX: Z79.01 Long term (current) use of anticoagulants (principal) ==

== ENCOUNTER 2020-09-09 08:00 | Outpatient (CLI) | payer MEDICARE, OTHER | END 2020-09-09 23:59 | disposition home or self-care (01) | LOC: LAB.WCP 08:00 | PROVIDERS: ATTEND Internal Medicine | DX: Z79.01 Long term (current) use of anticoagulants (principal) ==

== ENCOUNTER 2020-10-07 08:00 | Outpatient (CLI) | payer MEDICARE, OTHER | END 2020-10-07 23:59 | disposition home or self-care (01) | LOC: LAB.WCP 08:00 | PROVIDERS: ATTEND Family Medicine | DX: Z79.01 Long term (current) use of anticoagulants (principal) ==

== ENCOUNTER 2020-10-14 08:00 | Outpatient (CLI) | payer MEDICARE, OTHER | END 2020-10-14 23:59 | disposition home or self-care (01) | LOC: LAB.N 08:00 | PROVIDERS: ATTEND Family Medicine | DX: R30.0 Dysuria (principal) | CPT/HCPCS: 87086; 87181 ==

== ENCOUNTER 2020-10-15 14:10 | Outpatient (CLI) | payer MEDICARE, OTHER | END 2020-10-15 23:59 | disposition home or self-care (01) | LOC: LAB.R 14:10 | PROVIDERS: ATTEND Family Medicine | DX: R30.0 Dysuria (principal) | CPT/HCPCS: 87086; 87181 ==

== ENCOUNTER 2020-10-30 08:00 | Outpatient (CLI) | payer MEDICARE, OTHER | END 2020-10-30 23:59 | disposition home or self-care (01) | LOC: LAB.WCP 08:00 | PROVIDERS: ATTEND Internal Medicine | DX: Z79.01 Long term (current) use of anticoagulants (principal) ==

== ENCOUNTER 2020-11-20 08:00 | Outpatient (CLI) | payer MEDICARE, OTHER | END 2020-11-20 23:59 | disposition home or self-care (01) | LOC: LAB.WCP 08:00 | PROVIDERS: ATTEND Internal Medicine | DX: Z79.01 Long term (current) use of anticoagulants (principal) ==

== ENCOUNTER 2020-12-05 08:00 | Outpatient (CLI) | payer MEDICARE, OTHER | END 2020-12-05 23:59 | disposition home or self-care (01) | LOC: LAB 08:00 | PROVIDERS: ATTEND Obstetrics & Gynecology | DX: N39.45 Continuous leakage (principal) | CPT/HCPCS: 87086 ==

== ENCOUNTER 2020-12-12 08:00 | Outpatient (CLI) | payer MEDICARE, OTHER | END 2020-12-12 23:59 | disposition home or self-care (01) | LOC: LAB.R 08:00 | PROVIDERS: ATTEND Obstetrics & Gynecology | DX: N39.45 Continuous leakage (principal) | CPT/HCPCS: 87086 ==

== ENCOUNTER 2020-12-18 08:00 | Outpatient (CLI) | payer MEDICARE, OTHER | END 2020-12-18 23:59 | disposition home or self-care (01) | LOC: LAB.WCP 08:00 | PROVIDERS: ATTEND Internal Medicine | DX: Z79.01 Long term (current) use of anticoagulants (principal); Z95.2 Presence of prosthetic heart valve ==

== ENCOUNTER 2021-01-01 08:00 | Outpatient (CLI) | payer MEDICARE, OTHER | END 2021-01-01 23:59 | disposition home or self-care (01) | LOC: LAB.WCP 08:00 | PROVIDERS: ATTEND Nurse Practitioner | DX: I48.0 Paroxysmal atrial fibrillation (principal); Z79.01 Long term (current) use of anticoagulants ==

== ENCOUNTER 2021-02-14 08:00 | Outpatient (CLI) | payer MEDICARE, OTHER | END 2021-02-14 23:59 | disposition home or self-care (01) | LOC: LAB.WCP 08:00 | PROVIDERS: ATTEND Internal Medicine | DX: I48.0 Paroxysmal atrial fibrillation (principal); Z79.01 Long term (current) use of anticoagulants; Z95.2 Presence of prosthetic heart valve ==

== ENCOUNTER 2021-02-28 08:00 | Outpatient (CLI) | payer MEDICARE, OTHER | END 2021-02-28 23:59 | disposition home or self-care (01) | LOC: LAB.WCP 08:00 | PROVIDERS: ATTEND Internal Medicine | DX: I48.0 Paroxysmal atrial fibrillation (principal); Z95.2 Presence of prosthetic heart valve; Z79.01 Long term (current) use of anticoagulants ==

== ENCOUNTER 2021-03-17 08:00 | Outpatient (CLI) | payer MEDICARE, OTHER | END 2021-03-17 23:59 | disposition home or self-care (01) | LOC: LAB.WCP 08:00 | PROVIDERS: ATTEND Internal Medicine | DX: I48.0 Paroxysmal atrial fibrillation (principal); Z79.01 Long term (current) use of anticoagulants; Z95.2 Presence of prosthetic heart valve ==

== ENCOUNTER 2021-03-26 08:00 | Outpatient (CLI) | payer MEDICARE, OTHER | END 2021-03-26 23:59 | disposition home or self-care (01) | LOC: LAB.WCP 08:00 | PROVIDERS: ATTEND Internal Medicine | DX: I48.0 Paroxysmal atrial fibrillation (principal); Z79.01 Long term (current) use of anticoagulants; G45.9 Transient cerebral ischemic attack, unspecified; Z95.2 Presence of prosthetic heart valve ==

== ENCOUNTER 2021-04-04 08:00 | Outpatient (CLI) | payer MEDICARE, OTHER | END 2021-04-04 23:59 | disposition home or self-care (01) | LOC: LAB.WCP 08:00 | PROVIDERS: ATTEND Internal Medicine | DX: I48.0 Paroxysmal atrial fibrillation (principal); Z79.01 Long term (current) use of anticoagulants; Z95.2 Presence of prosthetic heart valve ==

== ENCOUNTER 2021-04-11 08:00 | Outpatient (CLI) | payer MEDICARE, OTHER | END 2021-04-11 23:59 | disposition home or self-care (01) | LOC: LAB.WCP 08:00 | PROVIDERS: ATTEND Internal Medicine | DX: I48.0 Paroxysmal atrial fibrillation (principal); Z79.01 Long term (current) use of anticoagulants; Z86.79 Personal history of other diseases of the circulatory system; Z95.2 Presence of prosthetic heart valve ==

== ENCOUNTER 2021-04-25 08:00 | Outpatient (CLI) | payer MEDICARE, OTHER | END 2021-04-25 23:59 | disposition home or self-care (01) | LOC: LAB.WCP 08:00 | PROVIDERS: ATTEND Internal Medicine | DX: Z79.01 Long term (current) use of anticoagulants (principal); I48.0 Paroxysmal atrial fibrillation; Z95.2 Presence of prosthetic heart valve ==

== ENCOUNTER 2021-05-09 08:00 | Outpatient (CLI) | payer MEDICARE, OTHER | END 2021-05-09 23:59 | disposition home or self-care (01) | LOC: LAB.WCP 08:00 | PROVIDERS: ATTEND Internal Medicine | DX: I48.0 Paroxysmal atrial fibrillation (principal); Z79.01 Long term (current) use of anticoagulants; Z95.2 Presence of prosthetic heart valve ==

== ENCOUNTER 2021-05-30 08:00 | Outpatient (CLI) | payer MEDICARE, OTHER | END 2021-05-30 23:59 | disposition home or self-care (01) | LOC: LAB.F 08:00 | PROVIDERS: ATTEND Internal Medicine | DX: I48.0 Paroxysmal atrial fibrillation (principal); Z79.01 Long term (current) use of anticoagulants; Z95.2 Presence of prosthetic heart valve ==

== ENCOUNTER 2021-06-20 08:00 | Outpatient (CLI) | payer MEDICARE, OTHER | END 2021-06-20 23:59 | disposition home or self-care (01) | LOC: LAB.WCP 08:00 | PROVIDERS: ATTEND Internal Medicine | DX: I48.0 Paroxysmal atrial fibrillation (principal); Z79.01 Long term (current) use of anticoagulants; Z95.2 Presence of prosthetic heart valve ==

== ENCOUNTER 2021-07-18 09:04 | Outpatient (CLI) | payer MEDICARE, OTHER ==
[2021-07-18 13:07] LABS: BASOPHILS # (AUTO) 0.1 10^3/uL (0.0-0.1); BASOPHILS % (AUTO) 1.3 %; EOSINOPHILS # (AUTO) 0.3 10^3/uL (0.0-0.7); HCT - HEMATOCRIT 43.2 % (37.0-47.0); LYMPHOCYTES # (AUTO) 1.5 10^3/uL (1.5-3.5); LYMPHOCYTES % (AUTO) 32.2 %; MEAN CORPUSCULAR HGB CONC 32.4 g/dL (32.0-36.0); MEAN CORPUSCULAR VOLUME 101.9 fL (81.0-99.0); MEAN PLATELET VOLUME 10.9 fL (7.9-10.8); MONOCYTES # (AUTO) 0.5 10^3/uL (0.0-1.0); MONOCYTES % (AUTO) 11.2 %; NEUTROPHILS # (AUTO) 2.3 10^3/uL (1.5-6.6); NEUTROPHILS % (AUTO) 49.1 %; PLT - PLATELET COUNT 251 10^3/uL (130-450); RED BLOOD COUNT 4.24 10^6/uL (4.20-5.40); RED CELL DISTRIBUTION WIDTH 13.5 % (12.0-15.0); WHITE BLOOD COUNT 4.6 x10^3/uL (4.8-10.8)
[2021-07-18 13:53] LABS: ALBUMIN/GLOBULIN RATIO 1.1 (1.0-2.2); ALKALINE PHOSPHATASE 36 IU/L (42-121); ALT ALANINE AMINOTRANSFERASE 22 IU/L (10-60); AST ASPARTATE AMINOTRANSFERASE 31 IU/L (10-42); BILIRUBIN,TOTAL 0.8 mg/dL (0.2-1.0); BUN - BLOOD UREA NITROGEN 19 mg/dL (6-20); CALCIUM 9.3 mg/dL (8.5-10.3); CARBON DIOXIDE - CO2 29 mmol/L (21-32); CHLORIDE 96 mmol/L (101-111); CHOL/HDL RATIO 4.1 (<4.4); CHOLESTEROL 298 mg/dL; CREATININE 0.8 mg/dL (0.4-1.0); GFR - MDRD 69 (>89); GLUCOSE 100 mg/dL (70-100); HDL CHOLESTEROL 72 mg/dL; LDL CHOLESTEROL,CALCULATED 206 mg/dL; LDL/HDL RATIO 2.9 (<4.4); POTASSIUM 4.3 mmol/L (3.5-5.0); SODIUM 136 mmol/L (135-145); TOTAL PROTEIN 7.5 g/dL (6.7-8.2); TRIGLYCERIDES 100 mg/dL; VLDL CHOLESTEROL 20 mg/dL
[2021-07-18 14:00] LABS: THYROID STIMULATING HORMONE 6.68 uIU/mL (0.34-5.60)
[2021-07-18 15:36] LABS: FREE T4 (FREE THYROXINE) 1.37 ng/dL (0.58-1.64)
== END 2021-07-18 09:05 | disposition home or self-care (01) ==
LOC: LAB.N 09:04
PROVIDERS: ATTEND Internal Medicine
DX: Z00.00 Encounter for general adult medical examination without abnormal findings (principal); Z86.79 Personal history of other diseases of the circulatory system; I10 Essential (primary) hypertension; E78.2 Mixed hyperlipidemia; E03.9 Hypothyroidism, unspecified
CPT/HCPCS: 36415; 80053; 80061; 83721; 84439; 84443; 85025

== ENCOUNTER 2021-08-25 08:00 | Outpatient (CLI) | payer MEDICARE, OTHER | END 2021-08-25 23:59 | disposition home or self-care (01) | LOC: LAB.WCP 08:00 | PROVIDERS: ATTEND Internal Medicine | DX: Z79.01 Long term (current) use of anticoagulants (principal); I48.0 Paroxysmal atrial fibrillation; Z95.2 Presence of prosthetic heart valve ==

== ENCOUNTER 2021-09-09 11:02 | Outpatient (CLI) | payer MEDICARE, OTHER ==
[2021-09-09 11:34] LABS: BILIRUBIN,DIRECT 0.2 mg/dL (0.1-0.5); BILIRUBIN,TOTAL 0.7 mg/dL (0.2-1.0); TOTAL PROTEIN 7.5 g/dL (6.7-8.2)
== END 2021-09-09 11:03 | disposition home or self-care (01) ==
LOC: LAB 11:02
PROVIDERS: ATTEND Internal Medicine Cardiovascular Disease
DX: I48.19 Other persistent atrial fibrillation (principal)
CPT/HCPCS: 36415; 80076; 84443

== ENCOUNTER 2021-09-10 13:06 | Outpatient (CLI) | payer MEDICARE, OTHER | END 2021-09-10 13:07 | disposition home or self-care (01) | LOC: RT 13:06 | PROVIDERS: ATTEND Internal Medicine Cardiovascular Disease | DX: I48.19 Other persistent atrial fibrillation (principal); Z79.899 Other long term (current) drug therapy | CPT/HCPCS: 94010; 94729 ==

== ENCOUNTER 2021-09-12 08:00 | Outpatient (CLI) | payer MEDICARE, OTHER | END 2021-09-12 23:59 | disposition home or self-care (01) | LOC: LAB.WCP 08:00 | PROVIDERS: ATTEND Internal Medicine | DX: I48.0 Paroxysmal atrial fibrillation (principal); Z79.01 Long term (current) use of anticoagulants; Z95.2 Presence of prosthetic heart valve; G45.9 Transient cerebral ischemic attack, unspecified ==

== ENCOUNTER 2021-09-24 08:00 | Outpatient (CLI) | payer MEDICARE, OTHER | END 2021-09-24 23:59 | disposition home or self-care (01) | LOC: LAB.WCP 08:00 | PROVIDERS: ATTEND Internal Medicine | DX: I48.0 Paroxysmal atrial fibrillation (principal); Z79.01 Long term (current) use of anticoagulants; Z95.2 Presence of prosthetic heart valve ==

== ENCOUNTER 2021-10-01 08:00 | Outpatient (CLI) | payer MEDICARE, OTHER | END 2021-10-01 23:59 | disposition home or self-care (01) | LOC: LAB.WCP 08:00 | PROVIDERS: ATTEND Internal Medicine | DX: I48.0 Paroxysmal atrial fibrillation (principal); Z79.01 Long term (current) use of anticoagulants; Z95.2 Presence of prosthetic heart valve; G45.9 Transient cerebral ischemic attack, unspecified ==

== ENCOUNTER 2021-10-20 08:00 | Outpatient (CLI) | payer MEDICARE, OTHER | END 2021-10-20 23:59 | disposition home or self-care (01) | LOC: LAB.WCP 08:00 | PROVIDERS: ATTEND Nurse Practitioner | DX: R31.9 Hematuria, unspecified (principal) | CPT/HCPCS: 87086; 87181 ==

== ENCOUNTER 2021-11-03 08:00 | Outpatient (CLI) | payer MEDICARE, OTHER | END 2021-11-03 23:59 | disposition home or self-care (01) | LOC: LAB.WCP 08:00 | PROVIDERS: ATTEND Internal Medicine | DX: I48.0 Paroxysmal atrial fibrillation (principal); Z79.01 Long term (current) use of anticoagulants; Z95.2 Presence of prosthetic heart valve ==

== ENCOUNTER 2021-11-17 08:00 | Outpatient (CLI) | payer MEDICARE, OTHER | END 2021-11-17 23:59 | disposition home or self-care (01) | LOC: LAB.WCP 08:00 | PROVIDERS: ATTEND Internal Medicine | DX: Z79.01 Long term (current) use of anticoagulants (principal); I48.0 Paroxysmal atrial fibrillation; Z95.2 Presence of prosthetic heart valve ==

== ENCOUNTER 2021-12-08 08:00 | Outpatient (CLI) | payer MEDICARE, OTHER | END 2021-12-08 23:59 | disposition home or self-care (01) | LOC: LAB.N 08:00 | PROVIDERS: ATTEND Internal Medicine | DX: I48.0 Paroxysmal atrial fibrillation (principal); Z79.01 Long term (current) use of anticoagulants; Z95.2 Presence of prosthetic heart valve; G45.9 Transient cerebral ischemic attack, unspecified ==

== ENCOUNTER 2021-12-17 08:00 | Outpatient (CLI) | payer MEDICARE, OTHER | END 2021-12-17 23:59 | disposition home or self-care (01) | LOC: LAB.N 08:00 | PROVIDERS: ATTEND Internal Medicine | DX: Z79.01 Long term (current) use of anticoagulants (principal); I48.0 Paroxysmal atrial fibrillation; Z95.2 Presence of prosthetic heart valve ==

== ENCOUNTER 2022-01-07 08:00 | Outpatient (CLI) | payer MEDICARE, OTHER | END 2022-01-07 23:59 | disposition home or self-care (01) | LOC: LAB.N 08:00 | PROVIDERS: ATTEND Internal Medicine | DX: I48.0 Paroxysmal atrial fibrillation (principal); Z79.01 Long term (current) use of anticoagulants; Z95.2 Presence of prosthetic heart valve ==

== ENCOUNTER 2022-01-16 07:31 | Outpatient (CLI) | payer MEDICARE, OTHER ==
[2022-01-16 12:05] LABS: BASOPHILS # (AUTO) 0.1 10^3/uL (0.0-0.1); BASOPHILS % (AUTO) 1.4 %; EOSINOPHILS # (AUTO) 0.3 10^3/uL (0.0-0.7); EOSINOPHILS % (AUTO) 6.8 %; HCT - HEMATOCRIT 42.4 % (37.0-47.0); HGB - HEMOGLOBIN 14.1 g/dL (12.0-16.0); LYMPHOCYTES # (AUTO) 1.8 10^3/uL (1.5-3.5); LYMPHOCYTES % (AUTO) 41.7 %; MEAN CORPUSCULAR HEMOGLOBIN 32.8 pg (27.0-31.0); MEAN CORPUSCULAR HGB CONC 33.3 g/dL (32.0-36.0); MEAN CORPUSCULAR VOLUME 98.6 fL (81.0-99.0); MEAN PLATELET VOLUME 12.3 fL (7.9-10.8); MONOCYTES # (AUTO) 0.4 10^3/uL (0.0-1.0); MONOCYTES % (AUTO) 9.8 %; NEUTROPHILS # (AUTO) 1.7 10^3/uL (1.5-6.6); NEUTROPHILS % (AUTO) 40.1 %; PLT - PLATELET COUNT 210 10^3/uL (130-450); RED CELL DISTRIBUTION WIDTH 13.8 % (12.0-15.0); WHITE BLOOD COUNT 4.3 x10^3/uL (4.8-10.8)
[2022-01-16 12:08] LABS: ALBUMIN/GLOBULIN RATIO 1.1 (1.0-2.2); ALKALINE PHOSPHATASE 36 IU/L (42-121); ALT ALANINE AMINOTRANSFERASE 23 IU/L (10-60); AST ASPARTATE AMINOTRANSFERASE 40 IU/L (10-42); BILIRUBIN,TOTAL 0.9 mg/dL (0.2-1.0); BUN - BLOOD UREA NITROGEN 15 mg/dL (6-20); CALCIUM 9.5 mg/dL (8.5-10.3); CARBON DIOXIDE - CO2 29 mmol/L (21-32); CHLORIDE 96 mmol/L (101-111); CHOLESTEROL 189 mg/dL; CREATININE 0.9 mg/dL (0.4-1.0); GFR - MDRD 60 (>89); GLUCOSE 100 mg/dL (70-100); HDL CHOLESTEROL 63 mg/dL; LDL CHOLESTEROL,CALCULATED 108 mg/dL; LDL/HDL RATIO 1.7 (<4.4); SODIUM 136 mmol/L (135-145); TOTAL PROTEIN 7.6 g/dL (6.7-8.2); TRIGLYCERIDES 92 mg/dL; VLDL CHOLESTEROL 18 mg/dL
[2022-01-16 12:23] LABS: THYROID STIMULATING HORMONE 5.79 uIU/mL (0.34-5.60)
[2022-01-16 13:02] LABS: FREE T4 (FREE THYROXINE) 1.73 ng/dL (0.58-1.64)
== END 2022-01-16 07:32 | disposition home or self-care (01) ==
LOC: LAB.N 07:31
PROVIDERS: ATTEND Internal Medicine
DX: I42.9 Cardiomyopathy, unspecified (principal); E78.2 Mixed hyperlipidemia; E03.9 Hypothyroidism, unspecified
CPT/HCPCS: 36415; 80053; 80061; 83721; 84439; 84443; 85025

== ENCOUNTER 2022-02-11 08:00 | Outpatient (CLI) | payer MEDICARE, OTHER | END 2022-02-11 23:59 | disposition home or self-care (01) | LOC: LAB.WCP 08:00 | PROVIDERS: ATTEND Internal Medicine | DX: I48.0 Paroxysmal atrial fibrillation (principal); Z79.01 Long term (current) use of anticoagulants; Z95.2 Presence of prosthetic heart valve; G45.9 Transient cerebral ischemic attack, unspecified ==

== ENCOUNTER 2022-02-18 08:00 | Outpatient (CLI) | payer MEDICARE, OTHER | END 2022-02-18 23:59 | disposition home or self-care (01) | LOC: LAB.N 08:00 | PROVIDERS: ATTEND Internal Medicine | DX: Z79.01 Long term (current) use of anticoagulants (principal); I48.0 Paroxysmal atrial fibrillation; Z95.2 Presence of prosthetic heart valve; G45.9 Transient cerebral ischemic attack, unspecified ==

== ENCOUNTER 2022-03-04 08:00 | Outpatient (CLI) | payer MEDICARE, OTHER | END 2022-03-04 08:01 | disposition home or self-care (01) | LOC: LAB.N 08:00 | PROVIDERS: ATTEND Internal Medicine | DX: I48.0 Paroxysmal atrial fibrillation (principal); Z79.01 Long term (current) use of anticoagulants; Z95.2 Presence of prosthetic heart valve; G45.9 Transient cerebral ischemic attack, unspecified ==

== ENCOUNTER 2022-04-06 08:00 | Outpatient (CLI) | payer MEDICARE, OTHER | END 2022-04-06 23:59 | disposition home or self-care (01) | LOC: LAB.WCP 08:00 | PROVIDERS: ATTEND Internal Medicine | DX: I48.0 Paroxysmal atrial fibrillation (principal); G45.9 Transient cerebral ischemic attack, unspecified; Z79.01 Long term (current) use of anticoagulants; Z95.2 Presence of prosthetic heart valve ==

== ENCOUNTER 2022-05-08 08:00 | Outpatient (CLI) | payer MEDICARE, OTHER | END 2022-05-08 08:01 | disposition home or self-care (01) | LOC: LAB.N 08:00 | PROVIDERS: ATTEND Internal Medicine | DX: I48.0 Paroxysmal atrial fibrillation (principal); G45.9 Transient cerebral ischemic attack, unspecified; Z79.01 Long term (current) use of anticoagulants; Z95.2 Presence of prosthetic heart valve ==

== ENCOUNTER 2022-05-15 15:45 | Emergency (ER) | payer MEDICARE, OTHER ==
--- NOTE | 2022-05-15 16:02 | ED Physician Documentation ---
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 Happened just about half an hour ago prior to coming to the emergency department. She lost her balance and fell sideways hitting her right occiput on the chair. She also has mild left hip pain but is able to walk and bear weight. No other injuries. Last INR she says was 1.8 about a week ago. Review of Systems Constitutional: reports: Reviewed and negative Eyes: reports: Reviewed and negative Ears: reports: Reviewed and negative Cardiac: reports: Reviewed and negative Respiratory: reports: Reviewed and negative PD PAST MEDICAL HISTORY - Past Medical History Cardiovascular: Atrial flutter Endocrine/Autoimmune: HyPOthyroidism - Past Surgical History Past Surgical History: Yes Ortho: Hip replacement Cardiovascular: Valve replacement - Present Medications Home Medications: Ambulatory Orders Medication Instructions Recorded Confirmed Amoxicillin 500 mg PO 02/16/20 Cyclobenzaprine HCl 10 mg PO 02/16/20 Ezetimibe 10 mg PO 02/16/20 Levothyroxine [Synthroid] 125 mcg PO QDAC 02/16/20 02/16/20 Omeprazole 40 mg PO 02/16/20 Pramipexole Di-HCl [Pramipexole 0.25 mg PO 02/16/20 Dihydrochloride] Rosuvastatin Calcium [Crestor] 40 mg PO 02/16/20 Tolterodine Tartrate [Tolterodine 4 mg PO 02/16/20 Tartrate ER] Trospium Chloride [Trospium 60 mg PO 02/16/20 Chloride ER] Warfarin [Coumadin] 5 mg PO 1400 02/16/20 02/16/20 carvediloL [Carvedilol] 25 mg PO 02/16/20 levoFLOXacin [Levaquin] 750 mg PO 02/16/20 lisinopriL [Prinivil] 5 mg PO 02/16/20 - Allergies Allergies/Adverse Reactions: Allergies Allergy/AdvReac Type Severity Reaction Status Date / Time hydrocodone AdvReac Unknown Verified 05/15/22 16:04 latex AdvReac Unknown Verified 05/15/22 16:04 oxycodone AdvReac Unknown Verified 05/15/22 16:04 - Social History Does the pt smoke?: No Smoking Status: Never smoker Does the pt drink ETOH?: No Does the pt have substance abuse?: No - Immunizations Immunizations are current?: Yes - POLST Patient has POLST: No PD ED PE NORMAL - Vitals Vital signs reviewed: Yes - General General: Alert and oriented X 3, No acute distress - HEENT HEENT: PERRL, EOMI, Other (No palpable hematoma or abnormality of the scalp.) - Neck Neck: Supple, no meningeal sign, No bony TTP - Extremities Extremities: Other (Left hip is nontender with full range of motion and painless internal and external rotation.) - Neuro Neuro: Alert and oriented X 3, Normal speech Eye Opening: Spontaneous Motor: Obeys Commands Verbal: Oriented GCS Score: 15 Results - Vitals Vitals: Vital Signs - 24 hr 05/15/22 05/15/22 15:57 16:34 Temperature 36.2 C L Heart Rate 80 70 Respiratory 16 14 Rate Blood Pressure 135/64 H 122/75 O2 Saturation 98 100 Oxygen O2 Source Room air - Labs Labs: Laboratory Tests 05/15/22 16:06 INR (Fingerstick) 2.5 H - Rads (name of study) CT Head/Cspine Radiology: EMP read contemporaneously (CT of the head and cervical spine demonstrates age-related degenerative changes but no changes related to acute trauma such as skull fracture or, cervical spine fracture or intracranial hemorrhage.) Departure - Departure Disposition: 01 Home, Self Care Clinical Impression: Adequate anticoagulation on anticoagulant therapy Head injury Qualifiers: Encounter type: initial encounter Qualified Code(s): S09.90XA - Unspecified injury of head, initial encounter Condition: Good Record reviewed to determine appropriate education?: Yes Instructions: ED Head Injury Closed Comments: Your INR is 2.5 today which is perfectly acceptable, the CAT scan of your head and neck are negative. Return if you develop a significant headache or other new or worrisome symptoms. Follow-up with your primary care physician, next available appointment.
[2022-05-15 16:34] VITALS: BP 122/75
--- NOTE | 2022-05-15 16:36 | CT Report ---
PROCEDURE: HEAD WO INDICATIONS: head inj TECHNIQUE: Noncontrast 4.5 mm thick angled axial sections acquired from the foramen magnum to the vertex. For r adiation dose reduction, the following was used: automated exposure control, adjustment of mA and/or kV according to patient size. COMPARISON: CT cervical spine 05/15/2022 FINDINGS: Image quality: Excellent. The ventricular system and cortical sulci demonstrate atrophy, consistent for patient's stated age. There are areas of hypodensity in the periventricular and subcortical white matter. There is no acut e intra or extra-axial fluid collection. No acute hemorrhage, mass lesion or midline shift. Brainst em is unremarkable. Foci of prior ischemia is noted in the right centrum semiovale. Globes are symmetrical. Sinuses are aerated. Osseous structures are intact. IMPRESSION: 1. No acute intracranial process. 2. Moderate atrophy and chronic microvascular ischemic changes. Reviewed by: Lulu Riley MD on 05/15/2022 4:35 PM PDT Approved by: Lulu Riley MD on 05/15/2022 4:35 PM PDT Station ID: [id number]
--- NOTE | 2022-05-15 16:38 | CT Report ---
PROCEDURE: CERVICAL SPINE WO INDICATIONS: head inj TECHNIQUE: Noncontrast 3 mm thick sections acquired from the skull base to the T4 level. Sagittal and coronal r eformats were then constructed. For radiation dose reduction, the following was used: automated exp osure control, adjustment of mA and/or kV according to patient size. COMPARISON: CT head 05/15/2022. FINDINGS: Image quality: Excellent. Bones: No fractures or dislocations. Visualized superior ribs are intact. Multilevel degenerative changes are present. Soft tissues: Prevertebral soft tissues are normal in thickness. No paravertebral hematomas. No ap ical pneumothoraces. IMPRESSION: Multilevel degenerative changes without visualized fracture. Reviewed by: Lulu Riley MD on 05/15/2022 4:37 PM PDT Approved by: Lulu Riley MD on 05/15/2022 4:37 PM PDT Station ID: [id number]
== END 2022-05-15 17:08 | disposition home or self-care (01) ==
LOC: ED 15:45
DX: S09.90XA Unspecified injury of head, initial encounter (principal); W01.190A Fall on same level from slipping, tripping and stumbling with subsequent striking against furniture, initial encounter; Z79.01 Long term (current) use of anticoagulants; Z95.2 Presence of prosthetic heart valve; E03.9 Hypothyroidism, unspecified
CPT/HCPCS: 85610; 99282; 99284

== ENCOUNTER 2022-07-23 08:37 | Outpatient (CLI) | payer MEDICARE, OTHER ==
[2022-07-23 08:50] LABS: BASOPHILS # (AUTO) 0.1 10^3/uL (0.0-0.1); BASOPHILS % (AUTO) 1.3 %; EOSINOPHILS # (AUTO) 0.3 10^3/uL (0.0-0.7); EOSINOPHILS % (AUTO) 6.1 %; HCT - HEMATOCRIT 42.2 % (37.0-47.0); LYMPHOCYTES # (AUTO) 1.7 10^3/uL (1.5-3.5); LYMPHOCYTES % (AUTO) 35.8 %; MEAN CORPUSCULAR HEMOGLOBIN 32.5 pg (27.0-31.0); MEAN CORPUSCULAR HGB CONC 33.2 g/dL (32.0-36.0); MEAN CORPUSCULAR VOLUME 97.9 fL (81.0-99.0); MEAN PLATELET VOLUME 10.2 fL (7.9-10.8); MONOCYTES # (AUTO) 0.4 10^3/uL (0.0-1.0); MONOCYTES % (AUTO) 8.4 %; NEUTROPHILS # (AUTO) 2.3 10^3/uL (1.5-6.6); PLT - PLATELET COUNT 247 10^3/uL (130-450); RED BLOOD COUNT 4.31 10^6/uL (4.20-5.40); RED CELL DISTRIBUTION WIDTH 13.9 % (12.0-15.0); WHITE BLOOD COUNT 4.8 x10^3/uL (4.8-10.8)
[2022-07-23 09:10] LABS: ALBUMIN 3.8 g/dL (3.2-5.5); ALKALINE PHOSPHATASE 42 IU/L (42-121); ALT ALANINE AMINOTRANSFERASE 28 IU/L (10-60); AST ASPARTATE AMINOTRANSFERASE 39 IU/L (10-42); BILIRUBIN,TOTAL 0.7 mg/dL (0.2-1.0); BUN - BLOOD UREA NITROGEN 16 mg/dL (6-20); CALCIUM 9.1 mg/dL (8.5-10.3); CARBON DIOXIDE - CO2 30 mmol/L (21-32); CHLORIDE 98 mmol/L (101-111); CHOLESTEROL 191 mg/dL; CREATININE 0.9 mg/dL (0.4-1.0); GFR - MDRD 60 (>89); GLUCOSE 123 mg/dL (70-100); HDL CHOLESTEROL 64 mg/dL; LDL CHOLESTEROL,CALCULATED 113 mg/dL; LDL/HDL RATIO 1.8 (<4.4); POTASSIUM 4.2 mmol/L (3.5-5.0); SODIUM 136 mmol/L (135-145); TOTAL PROTEIN 7.5 g/dL (6.7-8.2); TRIGLYCERIDES 69 mg/dL; VLDL CHOLESTEROL 14 mg/dL
[2022-07-23 09:23] LABS: THYROID STIMULATING HORMONE 7.94 uIU/mL (0.34-5.60)
[2022-07-23 09:25] LABS: FREE T4 (FREE THYROXINE) 1.39 ng/dL (0.58-1.64)
== END 2022-07-23 08:38 | disposition home or self-care (01) ==
LOC: LAB 08:37
PROVIDERS: ATTEND Internal Medicine
DX: I10 Essential (primary) hypertension (principal); I48.0 Paroxysmal atrial fibrillation; E78.2 Mixed hyperlipidemia
CPT/HCPCS: 36415; 80053; 80061; 83721; 84439; 84443; 85025

== ENCOUNTER 2022-07-24 08:00 | Outpatient (CLI) | payer MEDICARE, OTHER | END 2022-07-24 23:59 | disposition home or self-care (01) | LOC: LAB.WCP 08:00 | PROVIDERS: ATTEND Internal Medicine | DX: Z79.01 Long term (current) use of anticoagulants (principal); I48.0 Paroxysmal atrial fibrillation; Z95.2 Presence of prosthetic heart valve; G45.9 Transient cerebral ischemic attack, unspecified ==

== ENCOUNTER 2022-09-18 08:00 | Outpatient (CLI) | payer MEDICARE, OTHER | END 2022-09-18 23:59 | disposition home or self-care (01) | LOC: LAB.WCP 08:00 | PROVIDERS: ATTEND Internal Medicine | DX: Z79.01 Long term (current) use of anticoagulants (principal); I48.0 Paroxysmal atrial fibrillation; Z95.2 Presence of prosthetic heart valve ==

== ENCOUNTER → 2022-10-16 | Outpatient (CLI) | payer MEDICARE, OTHER | LOC: LAB.WCP 08:00 | PROVIDERS: ATTEND Internal Medicine | DX: I48.0 Paroxysmal atrial fibrillation (principal); Z79.01 Long term (current) use of anticoagulants; Z95.2 Presence of prosthetic heart valve ==

== ENCOUNTER 2022-11-10 07:07 | Outpatient (CLI) | payer MEDICARE, OTHER | END 2022-11-10 07:08 | disposition short-term general hospital (02) | LOC: EMS 07:07 | DX: Z04.3 Encounter for examination and observation following other accident (principal) | CPT/HCPCS: A0425; A0429; A0888 ==